=== PATIENT | male | born 1955 | race African-American/Black ===

== ENCOUNTER 2017-05-11 12:15 | Emergency (ER) | payer MEDICARE ==
[~2017-05-11] VITALS: Ht 190.5 cm; Wt 97.0 kg
[~2017-05-11 12:15] MED LIST: AMOXICILLIN500 MG OR; DOES NOT KNOW NAME; ROBITUSSIN AC10 ML OR; ZITHROMAX250 MG PO
[2017-05-11 12:31] VITALS: BP 180/70
== END 2017-05-11 12:40 | disposition left against medical advice (07) ==
LOC: ED 12:15 → LWOBS 12:40
DX: Z91.19 Patient's noncompliance with other medical treatment and regimen (principal)

== ENCOUNTER 2017-06-11 06:53 | Observation (INO) | payer MEDICARE ==
[~2017-06-11] VITALS: Ht 190.5 cm; Wt 93.8 kg
[2017-06-11 07:36] LABS: HEMATOCRIT 26.6 % (39.0-50.0); HEMOGLOBIN 8.5 g/dl (14.0-18.0); IMMATURE GRANULOCYTES 0.5 % (0.0-1.0); MEAN CELL VOLUME 95.7 fL CALC (80.0-100.0); MEAN CORPUSCULAR HGB 30.6 pG CALC (26.0-32.0); NEUT# 9.5 thou/uL (1.82-7.42); RED BLOOD COUNT 2.78 mill/uL (4.70-6.10); RED CELL DISTRI WIDTH 14.6 % (11.5-15.5)
[2017-06-11 08:15] LABS: ALBUMIN 3.7 g/dL (3.2-5.0); BILIRUBIN, TOTAL 0.8 mg/dL (0.0-1.4); POTASSIUM 4.5 mmol/l (3.5-5.1); TOTAL PROTEIN 7.4 g/dL (6.3-8.2)
[2017-06-11 08:17] LABS: CREATININE 6.2 mg/dL (0.7-1.3)
[2017-06-11] MEDS ORDERED: LOVASTATIN20 M1 PO (08:48)
[2017-06-11] MEDS ORDERED: METOPROL TAR25 MG PO (08:48)
[2017-06-11] MEDS ORDERED: AMLODIPINE5 MG PO (08:49)
[2017-06-11] MEDS ORDERED: CLONIDINE0.1 MG PO (08:49)
[2017-06-11 10:15] VITALS: BP 180/70
[2017-06-11 10:15] LABS: URINE BILIRUBIN - DIPSTICK NEGATIVE (NEGATIVE); URINE BLOOD DIPSTICK MODERATE (NEGATIVE); URINE CLARITY SLIGHT CLOUDY; URINE COLOR YELLOW; URINE GLUCOSE - DIPSTICK NEGATIVE (NEGATIVE); URINE KETONE NEGATIVE (NEGATIVE); URINE LEUK ESTERASE NEGATIVE (NEGATIVE); URINE NITRITE - DIPSTICK NEGATIVE (Negative); URINE PROTEIN - DIPSTICK >=300 mg/dL (NEG-TRACE); URINE UROBILINOGEN - DIPSTICK 0.2 E.U./dL (0.2)
[2017-06-11 10:16] LABS: URINE MUCUS FEW hpf (NONE-FEW)
[2017-06-11 11:00] VITALS: BP 142/63
[2017-06-11 15:36] VITALS: BP 142/61
[2017-06-11 19:00] VITALS: BP 163/60
[2017-06-12 00:06] VITALS: BP 156/74
[2017-06-12 04:57] VITALS: BP 163/73
[2017-06-12 06:54] LABS: HEMATOCRIT 24.2 % (39.0-50.0); HEMOGLOBIN 7.8 g/dl (14.0-18.0); MEAN CELL VOLUME 94.5 fL CALC (80.0-100.0); MEAN CORPUSCULAR HGB 30.5 pG CALC (26.0-32.0); MEAN CORPUSCULAR HGB CONC 32.2 g/L CALC (32.0-36.0); NEUT# 11.32 thou/uL (1.82-7.42); RED BLOOD COUNT 2.56 mill/uL (4.70-6.10); RED CELL DISTRI WIDTH 14.5 % (11.5-15.5)
[2017-06-12 07:10] LABS: ALBUMIN 3.3 g/dL (3.2-5.0); CALCIUM 9.1 mg/dL (8.4-10.2); POTASSIUM 4.8 mmol/l (3.5-5.1)
[2017-06-12 07:14] LABS: CREATININE 6.3 mg/dL (0.7-1.3)
[2017-06-12 07:41] VITALS: BP 194/88
[2017-06-12 15:48] VITALS: BP 158/69
[2017-06-12 18:00] VITALS: BP 184/70
[2017-06-12 23:59] VITALS: BP 173/77
[2017-06-13 05:17] VITALS: BP 192/71
[2017-06-13 07:12] LABS: ALBUMIN 3.1 g/dL (3.2-5.0)
[2017-06-13 07:20] LABS: CREATININE 6.5 mg/dL (0.7-1.3)
[2017-06-13 07:34] VITALS: BP 185/79
[2017-06-13 07:38] VITALS: BP 185/79
[2017-06-13] MEDS ORDERED: PREDNISONE10 MG PO (09:34)
[2017-06-13] MEDS ORDERED: ZITHROMAX500 MG PO (09:34)
[2017-06-13] MEDS ORDERED: PHOSLO667 MG PO (09:34)
[2017-06-13] MEDS ORDERED: LASIX 40 MG TAB40 MG PO (09:34)
[2017-06-13] MEDS ORDERED: VITAMIN D2000 UNI2 PO (09:34)
[2017-06-13] MEDS ORDERED: IPRATROPIU0.5 MG/3 M IN (09:34)
== END 2017-06-13 10:45 | disposition home or self-care (01) ==
LOC: ED 06:53 → ED-I 08:42 → ED 09:10 → MS2 09:11
PROVIDERS: Emergency Medicine; Internal Medicine Nephrology; Nurse Practitioner Family; ADMIT Internal Medicine; ATTEND Internal Medicine
DX: J44.1 Chronic obstructive pulmonary disease with (acute) exacerbation (principal); J44.0 Chronic obstructive pulmonary disease with (acute) lower respiratory infection; J20.9 Acute bronchitis, unspecified; I13.2 Hypertensive heart and chronic kidney disease with heart failure and with stage 5 chronic kidney disease, or end stage renal disease; I50.9 Heart failure, unspecified; N18.5 Chronic kidney disease, stage 5; E11.22 Type 2 diabetes mellitus with diabetic chronic kidney disease; E78.5 Hyperlipidemia, unspecified; F17.210 Nicotine dependence, cigarettes, uncomplicated; E87.2 Acidosis; D63.1 Anemia in chronic kidney disease; R09.02 Hypoxemia
CPT/HCPCS: J0885; J1756

== ENCOUNTER 2017-11-14 06:52 | Emergency (ER) | payer MEDICARE ==
[~2017-11-14] VITALS: Ht 190.5 cm; Wt 90.0 kg
[~2017-11-14 06:52] MED LIST changes: +AMLODIPINE5 MG PO; +CLONIDINE0.1 MG PO; +IPRATROPIU0.5 MG/3 M IN; +LASIX 40 MG TAB40 MG PO; +LOVASTATIN20 M1 PO; +METOPROL TAR25 MG PO; +PHOSLO667 MG PO; +PREDNISONE10 MG PO; +VITAMIN D2000 UNI2 PO; +ZITHROMAX500 MG PO
[2017-11-14 07:53] LABS: HEMATOCRIT 36.7 % (39.0-50.0); HEMOGLOBIN 11.6 g/dl (14.0-18.0); IMMATURE GRANULOCYTES 0.4 % (0.0-1.0); MEAN CELL VOLUME 92.7 fL CALC (80.0-100.0); MEAN CORPUSCULAR HGB 29.3 pG CALC (26.0-32.0); MEAN CORPUSCULAR HGB CONC 31.6 g/L CALC (32.0-36.0); NEUT# 5.3 thou/uL (1.82-7.42); RED BLOOD COUNT 3.96 mill/uL (4.70-6.10); RED CELL DISTRI WIDTH 17.9 % (11.5-15.5)
[2017-11-14 08:04] LABS: ANION GAP 18 (6-22 (CALC)); BUN 56 mg/dL (8-23); BUN/CREATININE RATIO 7 (12-20 (CALC)); CARBON DIOXIDE 32 mmol/l (22-30); CHLORIDE 98 mmol/l (95-108); GFR 7 ML/MIN (>=60 (CALC)); GFR FOR AFR.AMER. 8 ML/MIN (>=60 (CALC)); POTASSIUM 3.6 mmol/l (3.5-5.1); SODIUM 145 mmol/l (137-146)
[2017-11-14 08:10] LABS: CREATININE 8.2 mg/dL (0.7-1.3)
[2017-11-14] MEDS ORDERED: LOVASTATIN20 M1 PO (09:09)
[2017-11-14] MEDS ORDERED: CLONIDINE0.1 MG PO (09:10)
[2017-11-14] MEDS ORDERED: TRAMADOL HCL50 MG PO (09:11)
[2017-11-14 09:41] VITALS: BP 158/63
== END 2017-11-14 09:20 ==
LOC: ED 06:52
PROVIDERS: Family Medicine
DX: I63.9 Cerebral infarction, unspecified (principal); R29.810 Facial weakness; G83.24 Monoplegia of upper limb affecting left nondominant side; R29.705 NIHSS score 5; F17.210 Nicotine dependence, cigarettes, uncomplicated; I12.0 Hypertensive chronic kidney disease with stage 5 chronic kidney disease or end stage renal disease; N18.6 End stage renal disease; Z99.2 Dependence on renal dialysis

== ENCOUNTER 2017-12-26 10:38 | Emergency (ER) | payer MEDICARE ==
[~2017-12-26] VITALS: Ht 190.5 cm; Wt 90.1 kg
[~2017-12-26 10:38] MED LIST changes: +TRAMADOL HCL50 MG PO
[2017-12-26] MEDS ORDERED: METOPROL TAR25 MG PO (11:26)
[2017-12-26] MEDS ORDERED: ASPIRIN 81 LOW81 MG PO (11:27)
[2017-12-26 11:28] LABS: IMMATURE GRANULOCYTES 0.8 % (0.0-1.0); MEAN CORPUSCULAR HGB CONC 31.4 g/L CALC (32.0-36.0); NEUT# 7.14 thou/uL (1.82-7.42); RED BLOOD COUNT 2.29 mill/uL (4.70-6.10); RED CELL DISTRI WIDTH 18.3 % (11.5-15.5)
[2017-12-26] MEDS ORDERED: LISINOPRIL20 MG PO (11:28)
[2017-12-26] MEDS ORDERED: HYDRALAZINE25 MG PO (11:29)
[2017-12-26 11:35] LABS: HEMATOCRIT 22.6 % (39.0-50.0); HEMOGLOBIN 7.1 g/dl (14.0-18.0); MEAN CELL VOLUME 98.7 fL CALC (80.0-100.0)
[2017-12-26 11:46] LABS: ACT PARTIAL THROMBO TIME 28.9 SECONDS (20.0-32.5); PROTHROMBIN TIME 10.7 SECONDS (9.0-12.5)
[2017-12-26 11:47] LABS: ALKALINE PHOSPHATASE 110 u/l (38-126); ANION GAP 19 (6-22 (CALC)); BILIRUBIN, TOTAL 0.3 mg/dL (0.0-1.4); BUN 44 mg/dL (8-23); CARBON DIOXIDE 29 mmol/l (22-30); CHLORIDE 101 mmol/l (95-108); POTASSIUM 3.8 mmol/l (3.5-5.1); SGOT/AST 38 u/l (19-48); SGPT/ALT 15 u/l (11-66); SODIUM 145 mmol/l (137-146); TOTAL PROTEIN 7.5 g/dL (6.3-8.2)
[2017-12-26 11:50] LABS: ALBUMIN 3.9 g/dL (3.2-5.0); BUN/CREATININE RATIO 5 (12-20 (CALC)); CREATININE 8.1 mg/dL (0.7-1.3); GFR 7 ML/MIN (>=60 (CALC)); GFR FOR AFR.AMER. 8 ML/MIN (>=60 (CALC))
[2017-12-26 11:59] LABS: MYOGLOBIN 298 ng/mL (0 - 121)
[2017-12-26 16:14] VITALS: BP 138/70
== END 2017-12-26 16:14 ==
LOC: ED 10:38
PROVIDERS: Emergency Medicine
DX: I63.9 Cerebral infarction, unspecified (principal); G81.94 Hemiplegia, unspecified affecting left nondominant side; R29.810 Facial weakness; R29.704 NIHSS score 4; I10 Essential (primary) hypertension; F17.210 Nicotine dependence, cigarettes, uncomplicated; Z86.73 Personal history of transient ischemic attack (TIA), and cerebral infarction without residual deficits

== ENCOUNTER 2018-04-15 16:34 | Emergency (ER) | payer MEDICARE ==
[~2018-04-15] VITALS: Ht 190.5 cm; Wt 90.9 kg
[~2018-04-15 16:34] MED LIST changes: +ASPIRIN 81 LOW81 MG PO; +HYDRALAZINE25 MG PO; +LISINOPRIL20 MG PO
[2018-04-15 17:47] LABS: IMMATURE GRANULOCYTES 0.7 % (0.0-1.0); MEAN CORPUSCULAR HGB 31.6 pG CALC (26.0-32.0); MEAN CORPUSCULAR HGB CONC 31.6 g/L CALC (32.0-36.0); NEUT# 7.03 thou/uL (1.82-7.42); RED BLOOD COUNT 3.01 mill/uL (4.70-6.10); RED CELL DISTRI WIDTH 15.9 % (11.5-15.5)
[2018-04-15 18:03] LABS: HEMATOCRIT 30.1 % (39.0-50.0); HEMOGLOBIN 9.5 g/dl (14.0-18.0)
[2018-04-15 18:12] LABS: ANION GAP 11 (6-22 (CALC)); BUN 21 mg/dL (8-23); CHLORIDE 96 mmol/l (95-108); POTASSIUM 3.6 mmol/l (3.5-5.1); SODIUM 141 mmol/l (137-146)
[2018-04-15 18:13] LABS: BUN/CREATININE RATIO 4 (12-20 (CALC)); CARBON DIOXIDE 38 mmol/l (22-30); CREATININE 4.8 mg/dL (0.7-1.3); GFR 12 ML/MIN (>=60 (CALC)); GFR FOR AFR.AMER. 15 ML/MIN (>=60 (CALC))
[2018-04-15 19:10] VITALS: BP 150/65
== END 2018-04-15 19:10 | disposition home or self-care (01) ==
LOC: ED 16:34
PROVIDERS: Family Medicine
DX: R53.1 Weakness (principal); R94.31 Abnormal electrocardiogram [ECG] [EKG]; F17.210 Nicotine dependence, cigarettes, uncomplicated; Z99.2 Dependence on renal dialysis; I10 Essential (primary) hypertension; Z86.73 Personal history of transient ischemic attack (TIA), and cerebral infarction without residual deficits

== ENCOUNTER 2018-04-27 18:11 | Emergency (ER) | payer MEDICARE ==
[~2018-04-27] VITALS: Ht 190.5 cm; Wt 70.0 kg
[2018-04-27 18:53] LABS: HEMATOCRIT 32.3 % (39.0-50.0); HEMOGLOBIN 10.4 g/dl (14.0-18.0); IMMATURE GRANULOCYTES 0.4 % (0.0-1.0); MEAN CELL VOLUME 99.1 fL CALC (80.0-100.0); MEAN CORPUSCULAR HGB 31.9 pG CALC (26.0-32.0); MEAN CORPUSCULAR HGB CONC 32.2 g/L CALC (32.0-36.0); NEUT# 5.17 thou/uL (1.82-7.42); RED BLOOD COUNT 3.26 mill/uL (4.70-6.10); RED CELL DISTRI WIDTH 15.3 % (11.5-15.5)
[2018-04-27 19:07] LABS: ALBUMIN 3.9 g/dL (3.2-5.0); ALKALINE PHOSPHATASE 109 u/l (38-126); ANION GAP 18 (6-22 (CALC)); BILIRUBIN, TOTAL 0.4 mg/dL (0.0-1.4); BUN 44 mg/dL (8-23); BUN/CREATININE RATIO 6 (12-20 (CALC)); CARBON DIOXIDE 31 mmol/l (22-30); CHLORIDE 96 mmol/l (95-108); GFR 8 ML/MIN (>=60 (CALC)); GFR FOR AFR.AMER. 9 ML/MIN (>=60 (CALC)); SGOT/AST 14 u/l (19-48); SGPT/ALT 19 u/l (11-66); SODIUM 141 mmol/l (137-146); TOTAL PROTEIN 7.7 g/dL (6.3-8.2)
[2018-04-27 19:08] LABS: CREATININE 7.2 mg/dL (0.7-1.3)
[2018-04-27 19:18] LABS: MYOGLOBIN 235 ng/mL (0 - 121)
[2018-04-27 19:29] VITALS: BP 102/63
[2018-04-27 19:38] LABS: ACT PARTIAL THROMBO TIME 26.8 SECONDS (20.0-32.5); PROTHROMBIN TIME 10.8 SECONDS (9.0-12.5)
== END 2018-04-27 19:29 | disposition short-term general hospital (02) ==
LOC: ED 18:11
PROVIDERS: Emergency Medicine
DX: R47.81 Slurred speech (principal); R26.81 Unsteadiness on feet; I95.9 Hypotension, unspecified; R53.1 Weakness; I12.0 Hypertensive chronic kidney disease with stage 5 chronic kidney disease or end stage renal disease; N18.6 End stage renal disease; F17.210 Nicotine dependence, cigarettes, uncomplicated; Z99.2 Dependence on renal dialysis; Z86.73 Personal history of transient ischemic attack (TIA), and cerebral infarction without residual deficits

== ENCOUNTER 2018-05-13 15:40 | Observation (INO) | payer MEDICARE ==
[~2018-05-13] VITALS: Ht 190.5 cm; Wt 74.0 kg
[~2018-05-13 15:40] MED LIST changes: -HYDRALAZINE25 MG PO
[2018-05-13 17:24] LABS: IMMATURE GRANULOCYTES 0.6 % (0.0-5.0); MEAN CELL VOLUME 98.7 fL CALC (80.0-100.0); MEAN CORPUSCULAR HGB 32.2 pG CALC (26.0-32.0); MEAN CORPUSCULAR HGB CONC 32.6 g/L CALC (32.0-36.0); NEUT# 7.25 thou/uL (1.82-7.42); RED BLOOD COUNT 2.39 mill/uL (4.70-6.10); RED CELL DISTRI WIDTH 14.6 % (11.5-15.5)
[2018-05-13 17:32] LABS: HEMATOCRIT 23.6 % (39.0-50.0); HEMOGLOBIN 7.7 g/dl (14.0-18.0)
[2018-05-13] MEDS ORDERED: HYDRALAZINE25 MG PO (17:32)
[2018-05-13] MEDS ORDERED: METOPROL TAR25 MG PO (17:34)
[2018-05-13] MEDS ORDERED: ATORVASTATIN CA10 MG PO (17:35)
[2018-05-13 17:45] LABS: BUN 28 mg/dL (8-23); CARBON DIOXIDE 28 mmol/l (22-30); CHLORIDE 100 mmol/l (95-108); POTASSIUM 3.6 mmol/l (3.5-5.1)
[2018-05-13 17:46] LABS: ANION GAP 8 (6-22 (CALC)); BUN/CREATININE RATIO 7 (12-20 (CALC)); CREATININE 3.8 mg/dL (0.7-1.3); GFR 16 ML/MIN (>=60 (CALC)); GFR FOR AFR.AMER. 20 ML/MIN (>=60 (CALC)); SODIUM 132 mmol/l (137-146)
[2018-05-13 19:55] VITALS: BP 151/56
[2018-05-13 22:00] VITALS: BP 137/59
[2018-05-13 22:53] VITALS: BP 131/62
[2018-05-13 23:38] VITALS: BP 135/62
[2018-05-14] VITALS: BP 148/60
[2018-05-14 00:29] VITALS: BP 135/62
[2018-05-14 05:07] VITALS: BP 143/61
[2018-05-14 07:52] LABS: HEMATOCRIT 26.4 % (39.0-50.0); IMMATURE GRANULOCYTES 0.3 % (0.0-5.0); MEAN CORPUSCULAR HGB CONC 34.1 g/L CALC (32.0-36.0); NEUT# 6.28 thou/uL (1.82-7.42); RED BLOOD COUNT 2.81 mill/uL (4.70-6.10); RED CELL DISTRI WIDTH 16.2 % (11.5-15.5)
[2018-05-14 08:15] LABS: POTASSIUM 3.4 mmol/l (3.5-5.1)
[2018-05-14 08:20] VITALS: BP 135/69
[2018-05-14 11:17] VITALS: BP 126/58
== END 2018-05-14 15:12 | disposition home or self-care (01) ==
LOC: ED 15:40 → ED-I 18:03 → ED 18:21 → MS2 18:22
PROVIDERS: Family Medicine; ADMIT Internal Medicine; ATTEND Internal Medicine
PROC: 30233N1 Transfusion of Nonautologous Red Blood Cells into Peripheral Vein, Percutaneous Approach (ICD-10-PCS; principal; 2018-05-13)
DX: I12.0 Hypertensive chronic kidney disease with stage 5 chronic kidney disease or end stage renal disease (principal); D63.1 Anemia in chronic kidney disease; E11.22 Type 2 diabetes mellitus with diabetic chronic kidney disease; N18.6 End stage renal disease; F17.210 Nicotine dependence, cigarettes, uncomplicated; E78.5 Hyperlipidemia, unspecified; M19.90 Unspecified osteoarthritis, unspecified site; Z99.2 Dependence on renal dialysis; Z86.73 Personal history of transient ischemic attack (TIA), and cerebral infarction without residual deficits; Z85.038 Personal history of other malignant neoplasm of large intestine
CPT/HCPCS: P9016

== ENCOUNTER 2018-09-17 21:30 | Emergency (ER) | payer MEDICARE ==
[~2018-09-17] VITALS: Ht 190.5 cm; Wt 80.0 kg
[~2018-09-17 21:30] MED LIST changes: +ADULT ASPIRIN R81 MG PO; +ATORVASTATIN CA10 MG PO; +HYDRALAZINE25 MG PO; +LISINOPRIL10 M1 PO; +LOSARTAN POTASS50 MG PO
[2018-09-18 00:10] LABS: HEMOGLOBIN 9.2 g/dl (14.0-18.0); IMMATURE GRANULOCYTES 0.4 % (0.0-5.0); MEAN CELL VOLUME 96.9 fL CALC (80.0-100.0); MEAN CORPUSCULAR HGB 31.8 pG CALC (26.0-32.0); MEAN CORPUSCULAR HGB CONC 32.9 g/L CALC (32.0-36.0); NEUT# 3.1 thou/uL (1.82-7.42); RED BLOOD COUNT 2.89 mill/uL (4.70-6.10); RED CELL DISTRI WIDTH 14.5 % (11.5-15.5)
[2018-09-18 00:23] LABS: ALBUMIN 3.6 g/dL (3.2-5.0); BILIRUBIN, TOTAL 0.5 mg/dL (0.0-1.4); POTASSIUM 4.2 mmol/l (3.5-5.1); TOTAL PROTEIN 6.9 g/dL (6.3-8.2)
[2018-09-18 00:30] LABS: INFLUENZA B NONE DETECTED (NONE DETECT)
[2018-09-18] MEDS ORDERED: ZITHROMAX250 MG PO (00:43)
[2018-09-18 01:40] VITALS: BP 140/56
== END 2018-09-18 01:15 | disposition home or self-care (01) ==
LOC: ED 21:30
PROVIDERS: Emergency Medicine
DX: J18.9 Pneumonia, unspecified organism (principal); R05 Cough; R53.1 Weakness; R50.9 Fever, unspecified; Z86.73 Personal history of transient ischemic attack (TIA), and cerebral infarction without residual deficits; I12.0 Hypertensive chronic kidney disease with stage 5 chronic kidney disease or end stage renal disease; N18.6 End stage renal disease; Z99.2 Dependence on renal dialysis; F17.200 Nicotine dependence, unspecified, uncomplicated

== ENCOUNTER 2018-09-18 16:27 | Observation (INO) | payer MEDICARE ==
[~2018-09-18] VITALS: Ht 190.5 cm; Wt 71.0 kg
[2018-09-18 17:37] LABS: HEMATOCRIT 27.7 % (39.0-50.0); HEMOGLOBIN 9.2 g/dl (14.0-18.0); IMMATURE GRANULOCYTES 0.3 % (0.0-5.0); MEAN CELL VOLUME 96.5 fL CALC (80.0-100.0); MEAN CORPUSCULAR HGB 32.1 pG CALC (26.0-32.0); MEAN CORPUSCULAR HGB CONC 33.2 g/L CALC (32.0-36.0); NEUT# 3.89 thou/uL (1.82-7.42); RED BLOOD COUNT 2.87 mill/uL (4.70-6.10); RED CELL DISTRI WIDTH 14.4 % (11.5-15.5)
[2018-09-18 17:51] LABS: POTASSIUM 3.4 mmol/l (3.5-5.1)
[2018-09-18 17:52] LABS: CREATININE 3.1 mg/dL (0.7-1.3)
[2018-09-19] VITALS: BP 155/61
[2018-09-19 05:25] VITALS: BP 137/63
[2018-09-19 06:05] LABS: HEMATOCRIT 25.6 % (39.0-50.0); HEMOGLOBIN 8.7 g/dl (14.0-18.0); IMMATURE GRANULOCYTES 0.2 % (0.0-5.0); MEAN CELL VOLUME 94.8 fL CALC (80.0-100.0); MEAN CORPUSCULAR HGB 32.2 pG CALC (26.0-32.0); NEUT# 2.76 thou/uL (1.82-7.42); RED BLOOD COUNT 2.7 mill/uL (4.70-6.10); RED CELL DISTRI WIDTH 14.1 % (11.5-15.5)
[2018-09-19 06:20] LABS: ALBUMIN 3.2 g/dL (3.2-5.0); BILIRUBIN, TOTAL 0.4 mg/dL (0.0-1.4); MAGNESIUM 1.9 mg/dL (1.6-2.3); POTASSIUM 3.5 mmol/l (3.5-5.1); TOTAL PROTEIN 6.4 g/dL (6.3-8.2)
[2018-09-19 06:22] LABS: CREATININE 4.7 mg/dL (0.7-1.3)
[2018-09-19 07:48] VITALS: BP 111/50
[2018-09-19 11:15] VITALS: BP 100/68
== END 2018-09-19 13:51 | disposition home or self-care (01) ==
LOC: ED 16:27 → ED-I 18:10 → ED 18:24 → MS2 18:25
PROVIDERS: Family Medicine; ADMIT Internal Medicine Nephrology; ATTEND Internal Medicine Nephrology
DX: R55 Syncope and collapse (principal); E11.22 Type 2 diabetes mellitus with diabetic chronic kidney disease; I12.0 Hypertensive chronic kidney disease with stage 5 chronic kidney disease or end stage renal disease; N18.6 End stage renal disease; D63.1 Anemia in chronic kidney disease; N25.81 Secondary hyperparathyroidism of renal origin; E83.39 Other disorders of phosphorus metabolism; E78.5 Hyperlipidemia, unspecified; F17.210 Nicotine dependence, cigarettes, uncomplicated; M19.90 Unspecified osteoarthritis, unspecified site; Z99.2 Dependence on renal dialysis; Z86.73 Personal history of transient ischemic attack (TIA), and cerebral infarction without residual deficits; Z85.038 Personal history of other malignant neoplasm of large intestine

== ENCOUNTER 2019-04-30 10:03 | Emergency (ER) | payer MEDICARE ==
[~2019-04-30] VITALS: Ht 190.5 cm; Wt 60.0 kg
[2019-04-30 11:01] LABS: HEMOGLOBIN 8.6 g/dl (14.0-18.0); IMMATURE GRANULOCYTES 0.3 % (0.0-5.0); MEAN CELL VOLUME 97.4 fL CALC (80.0-100.0); MEAN CORPUSCULAR HGB 32.2 pG CALC (26.0-32.0); MEAN CORPUSCULAR HGB CONC 33.1 g/L CALC (32.0-36.0); NEUT# 2.8 thou/uL (1.82-7.42); RED BLOOD COUNT 2.67 mill/uL (4.70-6.10); RED CELL DISTRI WIDTH 13.4 % (11.5-15.5)
[2019-04-30 11:20] LABS: ALBUMIN 3.8 g/dL (3.2-5.0); ALKALINE PHOSPHATASE 100 u/l (38-126); ANION GAP 16 (6-22 (CALC)); BILIRUBIN, TOTAL 0.4 mg/dL (0.0-1.4); BUN 55 mg/dL (8-23); CARBON DIOXIDE 30 mmol/l (22-30); CHLORIDE 98 mmol/l (95-108); GFR 8 ML/MIN (>=60 (CALC)); GFR FOR AFR.AMER. 9 ML/MIN (>=60 (CALC)); POTASSIUM 3.6 mmol/l (3.5-5.1); SGOT/AST 17 u/l (19-48); SODIUM 140 mmol/l (137-146); TOTAL PROTEIN 7.5 g/dL (6.3-8.2)
[2019-04-30 11:22] LABS: BUN/CREATININE RATIO 8 (12-20 (CALC)); CREATININE 7.3 mg/dL (0.7-1.3)
[2019-04-30 12:35] VITALS: BP 115/59
== END 2019-04-30 12:35 | disposition home or self-care (01) ==
LOC: ED 10:03
PROVIDERS: Emergency Medicine
DX: R20.8 Other disturbances of skin sensation (principal); I12.0 Hypertensive chronic kidney disease with stage 5 chronic kidney disease or end stage renal disease; N18.6 End stage renal disease; Z99.2 Dependence on renal dialysis; D64.89 Other specified anemias; F17.200 Nicotine dependence, unspecified, uncomplicated; R94.31 Abnormal electrocardiogram [ECG] [EKG]; I69.354 Hemiplegia and hemiparesis following cerebral infarction affecting left non-dominant side; Y92.009 Unspecified place in unspecified non-institutional (private) residence as the place of occurrence of the external cause

== ENCOUNTER 2019-05-12 16:49 | Emergency (ER) | payer MEDICARE ==
[~2019-05-12] VITALS: Ht 190.5 cm; Wt 68.0 kg
[2019-05-12 17:49] LABS: HEMATOCRIT 23.4 % (39.0-50.0); HEMOGLOBIN 7.8 g/dl (14.0-18.0); IMMATURE GRANULOCYTES 0.4 % (0.0-5.0); MEAN CELL VOLUME 97.9 fL CALC (80.0-100.0); MEAN CORPUSCULAR HGB 32.6 pG CALC (26.0-32.0); MEAN CORPUSCULAR HGB CONC 33.3 g/L CALC (32.0-36.0); NEUT# 5.15 thou/uL (1.82-7.42); RED BLOOD COUNT 2.39 mill/uL (4.70-6.10); RED CELL DISTRI WIDTH 13.4 % (11.5-15.5)
[2019-05-12 18:05] LABS: ALBUMIN 3.3 g/dL (3.2-5.0); BILIRUBIN, TOTAL 0.3 mg/dL (0.0-1.4); TOTAL PROTEIN 6.7 g/dL (6.3-8.2)
[2019-05-12 18:06] LABS: CREATININE 3.8 mg/dL (0.7-1.3)
[2019-05-12 19:45] VITALS: BP 132/75
== END 2019-05-12 20:00 | disposition home or self-care (01) ==
LOC: ED 16:49
PROVIDERS: Emergency Medicine
DX: I95.3 Hypotension of hemodialysis (principal); E11.22 Type 2 diabetes mellitus with diabetic chronic kidney disease; I12.0 Hypertensive chronic kidney disease with stage 5 chronic kidney disease or end stage renal disease; N18.6 End stage renal disease; F17.200 Nicotine dependence, unspecified, uncomplicated; Z99.2 Dependence on renal dialysis

== ENCOUNTER 2019-06-13 16:28 | Emergency (ER) | payer MEDICARE ==
[~2019-06-13] VITALS: Ht 190.5 cm; Wt 85.0 kg
[2019-06-13 17:05] LABS: HEMATOCRIT 26.8 % (39.0-50.0); HEMOGLOBIN 8.8 g/dl (14.0-18.0); IMMATURE GRANULOCYTES 0.4 % (0.0-5.0); MEAN CORPUSCULAR HGB 32.8 pG CALC (26.0-32.0); MEAN CORPUSCULAR HGB CONC 32.8 g/L CALC (32.0-36.0); NEUT# 4.09 thou/uL (1.82-7.42); RED BLOOD COUNT 2.68 mill/uL (4.70-6.10); RED CELL DISTRI WIDTH 13.5 % (11.5-15.5)
[2019-06-13 17:18] LABS: ALBUMIN 3.9 g/dL (3.2-5.0); BILIRUBIN, TOTAL 0.4 mg/dL (0.0-1.4); CREATININE 3.2 mg/dL (0.7-1.3); TOTAL PROTEIN 7.4 g/dL (6.3-8.2)
[2019-06-13 19:15] VITALS: BP 135/71
== END 2019-06-13 19:15 | disposition home or self-care (01) ==
LOC: ED 16:28
DX: I95.3 Hypotension of hemodialysis (principal); E87.6 Hypokalemia; E11.22 Type 2 diabetes mellitus with diabetic chronic kidney disease; I12.0 Hypertensive chronic kidney disease with stage 5 chronic kidney disease or end stage renal disease; N18.6 End stage renal disease; F17.200 Nicotine dependence, unspecified, uncomplicated; Z99.2 Dependence on renal dialysis; Z86.73 Personal history of transient ischemic attack (TIA), and cerebral infarction without residual deficits

== ENCOUNTER 2019-06-25 16:23 | Emergency (ER) | payer MEDICARE ==
[~2019-06-25] VITALS: Ht 190.5 cm; Wt 81.8 kg
[2019-06-25 17:07] LABS: HEMATOCRIT 24.3 % (39.0-50.0); HEMOGLOBIN 8.2 g/dl (14.0-18.0); IMMATURE GRANULOCYTES 0.5 % (0.0-5.0); MEAN CELL VOLUME 98.4 fL CALC (80.0-100.0); MEAN CORPUSCULAR HGB 33.2 pG CALC (26.0-32.0); MEAN CORPUSCULAR HGB CONC 33.7 g/L CALC (32.0-36.0); NEUT# 4.99 thou/uL (1.82-7.42); RED BLOOD COUNT 2.47 mill/uL (4.70-6.10); RED CELL DISTRI WIDTH 13.4 % (11.5-15.5)
[2019-06-25 17:36] LABS: CREATININE 3.6 mg/dL (0.7-1.3); POTASSIUM 3.1 mmol/l (3.5-5.1)
[2019-06-25 18:54] VITALS: BP 103/45
== END 2019-06-25 18:55 ==
LOC: ED 16:23
PROVIDERS: Family Medicine
DX: R76.11 Nonspecific reaction to tuberculin skin test without active tuberculosis (principal); I95.3 Hypotension of hemodialysis; E11.22 Type 2 diabetes mellitus with diabetic chronic kidney disease; I12.0 Hypertensive chronic kidney disease with stage 5 chronic kidney disease or end stage renal disease; N18.6 End stage renal disease; F17.200 Nicotine dependence, unspecified, uncomplicated; Z99.2 Dependence on renal dialysis; Z86.73 Personal history of transient ischemic attack (TIA), and cerebral infarction without residual deficits

== ENCOUNTER 2019-09-09 23:43 | Observation (INO) | payer MEDICARE ==
[~2019-09-09] VITALS: Ht 190.5 cm; Wt 65.0 kg
[2019-09-10 00:50] LABS: IMMATURE GRANULOCYTES 0.4 % (0.0-5.0); MEAN CELL VOLUME 99.7 fL CALC (80.0-100.0); MEAN CORPUSCULAR HGB 32.9 pG CALC (26.0-32.0); NEUT# 5.48 thou/uL (1.82-7.42); RED BLOOD COUNT 3.04 mill/uL (4.70-6.10); RED CELL DISTRI WIDTH 13.1 % (11.5-15.5)
[2019-09-10 00:57] LABS: HEMATOCRIT 30.3 % (39.0-50.0)
[2019-09-10 01:12] LABS: ALBUMIN 4.6 g/dL (3.2-5.0); ALKALINE PHOSPHATASE 93 u/l (38-126); ANION GAP 16 (6-22 (CALC)); BILIRUBIN, TOTAL 0.4 mg/dL (0.0-1.4); BUN 27 mg/dL (8-23); CARBON DIOXIDE 34 mmol/l (22-30); CHLORIDE 92 mmol/l (95-108); POTASSIUM 3.5 mmol/l (3.5-5.1); SGOT/AST 24 u/l (19-48); SODIUM 139 mmol/l (137-146)
[2019-09-10 01:17] LABS: BUN/CREATININE RATIO 5 (12-20 (CALC)); GFR 10 ML/MIN (>=60 (CALC)); GFR FOR AFR.AMER. 12 ML/MIN (>=60 (CALC))
[2019-09-10 01:18] LABS: CREATININE 5.6 mg/dL (0.7-1.3)
[2019-09-10 01:24] LABS: MYOGLOBIN 291 ng/mL (0 - 121)
[2019-09-10 03:45] VITALS: BP 122/77
[2019-09-10 04:47] VITALS: BP 117/57
[2019-09-10 04:52] VITALS: BP 100/52
[2019-09-10 05:02] VITALS: BP 107/58
[2019-09-10 09:32] VITALS: BP 126/61
[2019-09-10 09:37] VITALS: BP 126/61
== END 2019-09-10 15:35 | disposition home or self-care (01) ==
LOC: ED 23:43 → ED-I 09-10 01:35 → ED 09-10 02:11 → MS2 09-10 02:12
PROVIDERS: Emergency Medicine; ADMIT Internal Medicine; ATTEND Internal Medicine
DX: R55 Syncope and collapse (principal); I12.0 Hypertensive chronic kidney disease with stage 5 chronic kidney disease or end stage renal disease; E11.22 Type 2 diabetes mellitus with diabetic chronic kidney disease; N18.6 End stage renal disease; D63.1 Anemia in chronic kidney disease; F17.210 Nicotine dependence, cigarettes, uncomplicated; Z86.73 Personal history of transient ischemic attack (TIA), and cerebral infarction without residual deficits; Z99.2 Dependence on renal dialysis; E78.5 Hyperlipidemia, unspecified
CPT/HCPCS: G0378

== ENCOUNTER 2020-02-13 | Observation (INO) | payer MEDICARE ==
[2020-02-13] MEDS ORDERED: PLAVIX75 MG PO (15:49)
[2020-02-13] MEDS ORDERED: PROAMATINE2.5 MG PO (15:49)
--- NOTE | 2020-02-13 16:00 | NUR ---
PT ARRIVES BY WHEELCHAIR FROM REGISTRATION, ALERT AND ORIENTED X 3. PT STATES THAT HE WENT TO DIALYSIS TODAY. IV ESTABLISHED WITH BLOOD DRAWN. INITIAL ASSESSMENT COMPLETED. PT IS OPINIONATED/LOUD/SIMPLE. NO ACUTE DISTRESS NOTED. PT NOT ABLE TO STATE CLEARLY WHY HE HAS BEEN ADMITTED.
[2020-02-13 16:10] LABS: HEMATOCRIT 28.4 % (39.0-50.0); HEMOGLOBIN 9.5 g/dl (14.0-18.0); IMMATURE GRANULOCYTES 0.4 % (0.0-5.0); MEAN CELL VOLUME 97.6 fL CALC (80.0-100.0); MEAN CORPUSCULAR HGB 32.6 pG CALC (26.0-32.0); MEAN CORPUSCULAR HGB CONC 33.5 g/dL CAL (32.0-36.0); NEUT# 4.81 thou/uL (1.82-7.42); RED BLOOD COUNT 2.91 mill/uL (4.70-6.10); RED CELL DISTRI WIDTH 13.3 % (11.5-15.5)
[2020-02-13 17:03] VITALS: BP 117/56
--- NOTE | 2020-02-13 17:33 | NUR ---
PT BEFORE, NO CHANGE IN STATUS, NO EVIDENCE OF DISTRESS.
--- NOTE | 2020-02-13 19:15 | NUR ---
REPORT FROM JAYCEE ALBARADO. PT NOTED SITTING UP IN BED WATCHING TV. ALERT AND ORIENTED. PT DENIES ANY PAIN OR DISCOMFORT. IV SITE APPEARS HEALTHY. PT DENIES ANY CURRENT WANTS OR NEEDS. DISCUSSED POC. PT VERBALIZED UNDERSTANDING. CALL LIGHT WITHIN REACH. WILL CONTINUE TO MONITOR.
[2020-02-13 19:48] VITALS: BP 126/54
--- NOTE | 2020-02-13 22:24 | NUR ---
PT CALLED HARDWARE DESIGN ENGINEER TO ROOM REQUESTING WHY HE IS HERE. PT DENIES FEELING ANY WEAKNESS AND STATES HE WAS BROUGHT HERE RIGHT AFTER DIALYSIS. HARDWARE DESIGN ENGINEER DISCUSSED ADMITTING DIAGNOSIS WITH PT AT THIS TIME. PT VERBALIZED UNDERSTANDING. NO CURRENT WANTS OR NEEDS. PT ENCOURAGED TO GET SOME REST AND CALL FOR ANY NEEDS. WILL CONTINUE TO MONITOR.
--- NOTE | 2020-02-14 02:02 | NUR ---
PT RESTING IN BED WITH EYES CLOSED. NO APPARENT DISTRESS NOTED. CALL LIGHT WITHIN REACH. WILL CONTINUE TO MONITOR.
[2020-02-14 03:50] VITALS: BP 114/52
[2020-02-14 07:24] VITALS: BP 117/64
--- NOTE | 2020-02-14 08:00 | NUR ---
DIALYSIS SHUNT TO LEFT UPPER ARM; PT'S WHEELCHAIR WITH CUSHION FROM HOME IN ROOM.
--- NOTE | 2020-02-14 08:00 | NUR ---
PT RESTING IN BED. NO DISTRESS. NO COMPLAINTS
--- NOTE | 2020-02-14 11:06 | NUR ---
PT RESTING IN BED. PT REPORTS PLAN FOR REHAB PLACEMENT. NO DISTRESS; NO COMPLAINTS
[2020-02-14 13:51] VITALS: BP 127/62
[2020-02-14 16:00] VITALS: BP 131/60
--- NOTE | 2020-02-14 16:00 | NUR ---
INFORMED PATIENT THAT I RECIEVED A MESSAGE THAT HIS SISTER CALLED FOR AN UPDATE. PT REPORTS THAT HE WILL CALL HIS SISTER. iNFORMATION CODE GIVEN TO PATIENT AND PT INFORMED TO GIVE CODE TO SISTER OR WHOMEVER HE WOULD LIKE TO GIVE CODE TO FOR TELEPHONE UPDATE TO BE GIVEN TO FAMILY MEMBER.
--- NOTE | 2020-02-14 19:10 | NUR ---
REPORT FROM JACKIE ALBARADO. PT NOTED SITTING UP IN BED WATCHING TV. ALERT AND ORIENTED. PT DENIES ANY PAIN OR DISCOMFORT. IV SITE APPEARS HEALTHY. PT DENIES ANY CURRENT WANTS OR NEEDS. DISCUSSED POC. PT VERBALIZED UNDERSTANDING. CALL LIGHT WITHIN REACH. WILL CONTINUE TO MONITOR.
[2020-02-14 19:20] VITALS: BP 141/66
--- NOTE | 2020-02-14 23:40 | NUR ---
PT RESTING IN BED WITH EYES CLOSED. NO APPARENT DISTRESS NOTED. CALL LIGHT WITHIN REACH. WILL CONTINUE TO MONITOR.
[2020-02-15 00:55] VITALS: BP 144/59
--- NOTE | 2020-02-15 03:32 | NUR ---
PT RESTING IN BED WITH EYES CLOSED. NO APPARENT DISTRESS NOTED. CALL LIGHT WITHIN REACH. WILL CONTINUE TO MONITOR.
[2020-02-15 04:35] VITALS: BP 100/40
[2020-02-15 05:14] LABS: HEMATOCRIT 24.3 % (39.0-50.0); HEMOGLOBIN 8.1 g/dl (14.0-18.0); MEAN CELL VOLUME 97.6 fL CALC (80.0-100.0); MEAN CORPUSCULAR HGB 32.5 pG CALC (26.0-32.0); MEAN CORPUSCULAR HGB CONC 33.3 g/dL CAL (32.0-36.0); RED BLOOD COUNT 2.49 mill/uL (4.70-6.10); RED CELL DISTRI WIDTH 13.3 % (11.5-15.5)
[2020-02-15 05:38] LABS: BILIRUBIN, TOTAL 0.3 mg/dL (0.0-1.4)
[2020-02-15 05:41] LABS: ALBUMIN 3.2 g/dL (3.2-5.0); POTASSIUM 4.3 mmol/l (3.5-5.1); TOTAL PROTEIN 6.2 g/dL (6.3-8.2)
[2020-02-15 05:42] LABS: CREATININE 7.1 mg/dL (0.7-1.3)
[2020-02-15 07:41] VITALS: BP 121/60
--- NOTE | 2020-02-15 10:18 | NUR ---
PT AWAKE, ALERT, ORIENTED X 3. LUNGS CLEAR, RA. ABDOMEN SOFT, PT STATES NO BM X 2 DAYS, REQUESTS MOM. PT SEEN BY DR MUELLER, AGREEABLE WITH PLAN OF CARE TO BE DISCHARGED TOMORROW TO DIALYSIS, THEN TO REHAB.
--- NOTE | 2020-02-15 13:19 | NUR ---
PLAN WILL BE TO DISCHARGE PT TO DIALYSIS TOMORROW MORNING, THEN HAVE REHAB BLISTER RUST ERADICATOR PT FROM THERE. MEDICAL TRANSPORT TO BE USED TO TAKE PT FROM HOSPITAL TO DIALYSIS CENTER.
[2020-02-15 15:29] VITALS: BP 131/63
[2020-02-15] MEDS ORDERED: PROAMATINE2.5 MG PO (17:07)
[2020-02-15] MEDS ORDERED: ATORVASTATIN CA10 MG PO (17:07)
[2020-02-15] MEDS ORDERED: METOPROL TAR25 MG PO (17:08)
--- NOTE | 2020-02-15 18:05 | NUR ---
PT UNABLE TO BE DISCHARGED TO REHAB AFTER DIALYSIS TOMORROW PER NOT QUALIFYING. SISTER KRISTI CALLED HOSPITAL, WAS UPDATED ON SITUATION THAT PT COULD BE DISCHARGED TONIGHT. SHE SAID SHE COULD NOT PICK HIM UP TONIGHT, THAT SHE WOULD NEED TO ARRANGE FOR SOMEONE TO STAY WITH HIM. PT, ON THE OTHER HAND, IS CALLING AROUND FOR A RIDE TO GET HIMSELF HOME TONIGHT. PT AWARE THAT HOME HEALTH WAS BEING SET UP FOR HIM, WHICH WILL START TOMORROW AFTER DIALYSIS IF HE IS DISCHARGED HOME TODAY.
--- NOTE | 2020-02-15 18:27 | NUR ---
NIEDISON GOLDSTEIN CALLED, VERY UNHAPPY THAT PT DID NOT QUALIFY FOR REHAB, THINKS THAT NURSING VISITS TO THE HOUSE WILL NOT BE ENOUGH. SITUATION WAS EXPLAINED AGAIN, FAMILY CONTINUES UNHAPPY. PT HIMSELF IS IN HIS WHEELCHAIR IN HALLWAY AFTER REFUSING TO STAY IN HIS ROOM, SAYING THAT IT IS TOO COLD.
--- NOTE | 2020-02-15 19:25 | NUR ---
PT. SITTING OUT IN W/C IN THE HALLWAY. PT. UPSET THAT HE CAN NOT GO HOME DUE TO NO RIDE. FURNITURE SPRAYER UPDATING PT. WELL. PT. REFUSES TO GO INTO THE ROOM AND WISHES TO WHEEL AROUND HALLS IN W/C. INSTRUCTED PT. HE WILL NEED TO KEEP MASK ON AT ALL TIMES WHILE IN THE GAMEZ. ASSESSMENT COMPLETED. UNABLE TO ASSESS BUTTOCKS AND RUDDY AREA DUE TO PT. NOT WANTING TO GO INTO ROOM. NO IV SITE PER DAYSHIFT REPORT, RESERVATION CLERK AWARE OF THIS AND OKAY WITH THIS PT. IS PENDING D/C. FISTULA TO ALIZA MORAN HEARD BY ASCULTATION. ENCOURAGED TO CALL FOR ANY NEEDS. CALL LIGHT IS IN REACH.
--- NOTE | 2020-02-16 00:03 | NUR ---
PT. RESTING IN BED WITH NO DISTRESS NOTED; DENIES NEEDS/PAIN. ENCOURAGED TO CALL FOR ANY NEEDS.
--- NOTE | 2020-02-16 03:45 | NUR ---
RESTING IN BED WITH EYES CLOSED; RESP. EVEN AND UNLABORED. CALL LIGHT IS IN REACH.
[2020-02-16 04:25] VITALS: BP 141/59
--- NOTE | 2020-02-16 05:05 | NUR ---
PT. SITTING UP ON THE SIDE OF THE BED AND DENIES NEEDS/PAIN. CALL LIGHT IS IN REACH.
[2020-02-16 05:10] LABS: HEMATOCRIT 24.1 % (39.0-50.0); HEMOGLOBIN 7.9 g/dl (14.0-18.0); IMMATURE GRANULOCYTES 0.4 % (0.0-5.0); MEAN CELL VOLUME 97.6 fL CALC (80.0-100.0); MEAN CORPUSCULAR HGB CONC 32.8 g/dL CAL (32.0-36.0); NEUT# 4.17 thou/uL (1.82-7.42); RED BLOOD COUNT 2.47 mill/uL (4.70-6.10); RED CELL DISTRI WIDTH 13.4 % (11.5-15.5)
[2020-02-16 05:43] LABS: ALBUMIN 3.2 g/dL (3.2-5.0); BILIRUBIN, TOTAL 0.3 mg/dL (0.0-1.4); POTASSIUM 4.5 mmol/l (3.5-5.1); TOTAL PROTEIN 6.4 g/dL (6.3-8.2)
[2020-02-16 06:42] LABS: CREATININE 8.7 mg/dL (0.7-1.3)
--- NOTE | 2020-02-16 07:20 | NUR ---
CHANGE OF SHIFT REPORT RECEIVED FROM PER OH. PT IN ROOM SITTING UP IN BED. PT DENIES PAIN. PT IS ABLE TO MAKE HIS NEEDS KNOWN. CALL LIGHT WITHIN EASY REACH. EXCAVATING MACHINE OPERATOR WILL CONTINUE TO MONITOR
[2020-02-16 07:44] VITALS: BP 105/62
--- NOTE | 2020-02-16 08:00 | NUR ---
UNIVERSITY LIBRARIAN CONSULTED WITH [facility] ABOUT TRANSPORTATION NEED FOR PT'S DIALYSIS APPOINTMENT AT 11AM. UNIVERSITY LIBRARIAN WILL CONTINUE TO FOLLOW UP
--- NOTE | 2020-02-16 10:08 | NUR ---
MERCHANT SEAMAN CALLED [facility], BEER COOL[facility]. PER [facility] TRANSPORTATION IS ON IT'S WAY TO SEX WORKER OR ESCORT PT. PT NOTIFIED
== END 2020-02-16 10:21 | disposition home health service (06) ==
PROVIDERS: Internal Medicine; Nurse Practitioner Family; ADMIT Internal Medicine
DX: R53.1 Weakness (principal); R62.7 Adult failure to thrive; Z68.1 Body mass index [BMI] 19.9 or less, adult; E11.22 Type 2 diabetes mellitus with diabetic chronic kidney disease; I12.0 Hypertensive chronic kidney disease with stage 5 chronic kidney disease or end stage renal disease; N18.6 End stage renal disease; D63.1 Anemia in chronic kidney disease; E78.5 Hyperlipidemia, unspecified; E87.6 Hypokalemia; I69.954 Hemiplegia and hemiparesis following unspecified cerebrovascular disease affecting left non-dominant side; F17.200 Nicotine dependence, unspecified, uncomplicated; Z99.2 Dependence on renal dialysis
CPT/HCPCS: G0378; G0379

== ENCOUNTER 2020-04-13 19:43 | Emergency (ER) | payer MEDICARE ==
[~2020-04-13] VITALS: Ht 190.5 cm; Wt 68.0 kg
[~2020-04-13 19:43] MED LIST changes: +PLAVIX75 MG PO; +PROAMATINE2.5 MG PO
[2020-04-13 20:28] LABS: HEMATOCRIT 22.7 % (39.0-50.0); HEMOGLOBIN 7.4 g/dl (14.0-18.0); IMMATURE GRANULOCYTES 0.2 % (0.0-5.0); MEAN CELL VOLUME 98.7 fL CALC (80.0-100.0); MEAN CORPUSCULAR HGB 32.2 pG CALC (26.0-32.0); MEAN CORPUSCULAR HGB CONC 32.6 g/dL CAL (32.0-36.0); NEUT# 3.22 thou/uL (1.82-7.42); RED BLOOD COUNT 2.3 mill/uL (4.70-6.10); RED CELL DISTRI WIDTH 13.7 % (11.5-15.5)
[2020-04-13 20:41] LABS: ALBUMIN 3.4 g/dL (3.2-5.0); ALKALINE PHOSPHATASE 76 u/l (38-126); BILIRUBIN, TOTAL 0.3 mg/dL (0.0-1.4); BUN 36 mg/dL (8-23); CHLORIDE 97 mmol/l (95-108); SGOT/AST 15 u/l (19-48); SODIUM 138 mmol/l (137-146); TOTAL PROTEIN 6.6 g/dL (6.3-8.2)
[2020-04-13 20:55] LABS: ANION GAP 10 (6-22 (CALC)); BUN/CREATININE RATIO 5 (12-20 (CALC)); CARBON DIOXIDE 34 mmol/l (22-30); CREATININE 6.6 mg/dL (0.7-1.3); GFR 8 ML/MIN (>=60 (CALC)); GFR FOR AFR.AMER. 10 ML/MIN (>=60 (CALC)); MYOGLOBIN 255 ng/mL (0 - 121); POTASSIUM 3.3 mmol/l (3.5-5.1)
[2020-04-13] MEDS ORDERED: ZPAK PO (21:40)
[2020-04-13 22:04] VITALS: BP 143/60
== END 2020-04-13 22:35 | disposition home or self-care (01) ==
LOC: ED 19:43
PROVIDERS: Emergency Medicine
DX: R55 Syncope and collapse (principal); E11.22 Type 2 diabetes mellitus with diabetic chronic kidney disease; I12.0 Hypertensive chronic kidney disease with stage 5 chronic kidney disease or end stage renal disease; N18.6 End stage renal disease; F17.200 Nicotine dependence, unspecified, uncomplicated; Z99.2 Dependence on renal dialysis; Z86.73 Personal history of transient ischemic attack (TIA), and cerebral infarction without residual deficits; Z20.828 Contact with and (suspected) exposure to other viral communicable diseases

== ENCOUNTER 2020-09-03 11:17 | Emergency (ER) | payer MEDICARE ==
[~2020-09-03] VITALS: Ht 190.5 cm; Wt 90.0 kg
[~2020-09-03 11:17] MED LIST changes: +ZPAK PO
[2020-09-03 12:42] LABS: HEMATOCRIT 25.7 % (39.0-50.0); HEMOGLOBIN 8.1 g/dl (14.0-18.0); IMMATURE GRANULOCYTES 0.6 % (0.0-5.0); MEAN CELL VOLUME 103.2 fL CALC (80.0-100.0); MEAN CORPUSCULAR HGB 32.5 pG CALC (26.0-32.0); MEAN CORPUSCULAR HGB CONC 31.5 g/dL CAL (32.0-36.0); NEUT# 6.33 thou/uL (1.82-7.42); RED BLOOD COUNT 2.49 mill/uL (4.70-6.10); RED CELL DISTRI WIDTH 13.5 % (11.5-15.5)
[2020-09-03 13:03] LABS: ALBUMIN 3.9 g/dL (3.2-5.0); ALKALINE PHOSPHATASE 65 u/l (38-126); ANION GAP 13 (6-22 (CALC)); BILIRUBIN, TOTAL 0.4 mg/dL (0.0-1.4); BUN 42 mg/dL (8-23); BUN/CREATININE RATIO 5 (12-20 (CALC)); CARBON DIOXIDE 34 mmol/l (22-30); CHLORIDE 98 mmol/l (95-108); GFR 6 ML/MIN (>=60 (CALC)); GFR FOR AFR.AMER. 8 ML/MIN (>=60 (CALC)); POTASSIUM 3.7 mmol/l (3.5-5.1); SGOT/AST 17 u/l (19-48); SODIUM 141 mmol/l (137-146); TOTAL PROTEIN 7.4 g/dL (6.3-8.2)
[2020-09-03 13:15] LABS: MYOGLOBIN 275 ng/mL (0 - 121)
[2020-09-03 13:17] LABS: CREATININE 8.5 mg/dL (0.7-1.3)
[2020-09-03 14:11] VITALS: BP 120/60
== END 2020-09-03 14:12 | disposition home or self-care (01) ==
LOC: ED 11:17
PROVIDERS: Emergency Medicine
DX: I95.9 Hypotension, unspecified (principal); E11.22 Type 2 diabetes mellitus with diabetic chronic kidney disease; I12.0 Hypertensive chronic kidney disease with stage 5 chronic kidney disease or end stage renal disease; N18.6 End stage renal disease; F17.200 Nicotine dependence, unspecified, uncomplicated; Z99.2 Dependence on renal dialysis; Z86.73 Personal history of transient ischemic attack (TIA), and cerebral infarction without residual deficits

== ENCOUNTER 2020-10-11 16:14 | Emergency (ER) | payer MEDICARE ==
[~2020-10-11] VITALS: Ht 193 cm; Wt 88.0 kg
[2020-10-11 17:49] LABS: HEMATOCRIT 23.8 % (39.0-50.0); HEMOGLOBIN 7.5 g/dl (14.0-18.0); IMMATURE GRANULOCYTES 0.6 % (0.0-5.0); MEAN CELL VOLUME 104.8 fL CALC (80.0-100.0); MEAN CORPUSCULAR HGB CONC 31.5 g/dL CAL (32.0-36.0); NEUT# 8.96 thou/uL (1.82-7.42); RED BLOOD COUNT 2.27 mill/uL (4.70-6.10); RED CELL DISTRI WIDTH 13.7 % (11.5-15.5)
[2020-10-11 18:08] LABS: ALKALINE PHOSPHATASE 72 u/l (38-126); ANION GAP 12 (6-22 (CALC)); BILIRUBIN, TOTAL 0.3 mg/dL (0.0-1.4); BUN 24 mg/dL (8-23); BUN/CREATININE RATIO 6 (12-20 (CALC)); CARBON DIOXIDE 30 mmol/l (22-30); CHLORIDE 99 mmol/l (95-108); GFR 16 ML/MIN (>=60 (CALC)); GFR FOR AFR.AMER. 19 ML/MIN (>=60 (CALC)); POTASSIUM 3.7 mmol/l (3.5-5.1); SGOT/AST 20 u/l (19-48); SODIUM 138 mmol/l (137-146); TOTAL PROTEIN 7.5 g/dL (6.3-8.2)
[2020-10-11 18:09] LABS: CREATININE 3.9 mg/dL (0.7-1.3)
[2020-10-11 18:20] LABS: MYOGLOBIN 329 ng/mL (0 - 121)
[2020-10-11 18:41] VITALS: BP 117/54
== END 2020-10-11 18:58 | disposition home or self-care (01) ==
LOC: ED 16:14
PROVIDERS: Emergency Medicine
DX: R53.1 Weakness (principal); E11.22 Type 2 diabetes mellitus with diabetic chronic kidney disease; I12.0 Hypertensive chronic kidney disease with stage 5 chronic kidney disease or end stage renal disease; N18.6 End stage renal disease; F17.210 Nicotine dependence, cigarettes, uncomplicated; Z99.2 Dependence on renal dialysis; Z86.73 Personal history of transient ischemic attack (TIA), and cerebral infarction without residual deficits; Z85.038 Personal history of other malignant neoplasm of large intestine

== ENCOUNTER 2021-01-10 14:55 | Emergency (ER) | payer MEDICARE ==
[~2021-01-10] VITALS: Ht 193 cm; Wt 68.0 kg
[2021-01-10 15:34] LABS: IMMATURE GRANULOCYTES 0.8 % (0.0-5.0); MEAN CELL VOLUME 102.5 fL CALC (80.0-100.0); MEAN CORPUSCULAR HGB CONC 33.1 g/dL CAL (32.0-36.0); NEUT# 7.74 thou/uL (1.82-7.42); RED BLOOD COUNT 1.59 mill/uL (4.70-6.10); RED CELL DISTRI WIDTH 14.6 % (11.5-15.5)
[2021-01-10 15:35] LABS: HEMATOCRIT 16.3 % (39.0-50.0)
[2021-01-10 15:36] LABS: HEMOGLOBIN 5.4 g/dl (14.0-18.0)
[2021-01-10 15:58] LABS: ALBUMIN 3.5 g/dL (3.2-5.0); ALKALINE PHOSPHATASE 80 u/l (38-126); AMYLASE 234 u/l (30-110); BUN 24 mg/dL (8-23); BUN/CREATININE RATIO 7 (12-20 (CALC)); CARBON DIOXIDE 29 mmol/l (22-30); CHLORIDE 93 mmol/l (95-108); CREATININE 3.6 mg/dL (0.7-1.3); GFR 17 ML/MIN (>=60 (CALC)); GFR FOR AFR.AMER. 21 ML/MIN (>=60 (CALC)); LIPASE 354 u/l (23-300); POTASSIUM 3.2 mmol/l (3.5-5.1); SGOT/AST 21 u/l (19-48); TOTAL PROTEIN 6.7 g/dL (6.3-8.2)
[2021-01-10 15:59] LABS: ANION GAP 12 (6-22 (CALC)); BILIRUBIN, TOTAL 0.5 mg/dL (0.0-1.4); SODIUM 131 mmol/l (137-146)
[2021-01-10 16:47] VITALS: BP 124/60
[2021-01-10 17:05] VITALS: BP 113/56
[2021-01-10 17:15] VITALS: BP 123/57
[2021-01-10 17:30] VITALS: BP 118/55
[2021-01-10 17:55] VITALS: BP 118/57
== END 2021-01-10 17:55 | disposition short-term general hospital (02) ==
LOC: ED 14:55
PROC: 30233N1 Transfusion of Nonautologous Red Blood Cells into Peripheral Vein, Percutaneous Approach (ICD-10-PCS; principal; 2021-01-10)
DX: R53.1 Weakness (principal); D64.9 Anemia, unspecified; K92.2 Gastrointestinal hemorrhage, unspecified; E11.22 Type 2 diabetes mellitus with diabetic chronic kidney disease; I12.0 Hypertensive chronic kidney disease with stage 5 chronic kidney disease or end stage renal disease; N18.6 End stage renal disease; F17.200 Nicotine dependence, unspecified, uncomplicated; Z99.2 Dependence on renal dialysis; Z86.73 Personal history of transient ischemic attack (TIA), and cerebral infarction without residual deficits; Z85.038 Personal history of other malignant neoplasm of large intestine
CPT/HCPCS: P9016

== ENCOUNTER 2021-07-15 15:13 | Observation (INO) | payer MEDICARE ==
[~2021-07-15] VITALS: Ht 193 cm; Wt 78.0 kg
[2021-07-15] VITALS (8 sets, daily range): BP systolic 125–158; BP diastolic 54–65
--- NOTE | 2021-07-15 15:15 | NUR ---
PATIENT IN BED RESTING. VSS.
--- NOTE | 2021-07-15 15:45 | NUR ---
PATIENT RESTING IN BED. WARM BLANKET APPLIED. STATES NO NEEDS AT THIS TIME.
[2021-07-15 15:56] LABS: IMMATURE GRANULOCYTES 0.4 % (0.0-5.0); MEAN CELL VOLUME 103.1 fL CALC (80.0-100.0); MEAN CORPUSCULAR HGB 32.9 pG CALC (26.0-32.0); MEAN CORPUSCULAR HGB CONC 31.9 g/dL CAL (32.0-36.0); NEUT# 4.96 thou/uL (1.82-7.42); RED BLOOD COUNT 1.61 mill/uL (4.70-6.10); RED CELL DISTRI WIDTH 15.7 % (11.5-15.5)
[2021-07-15 16:01] LABS: ALBUMIN 3.4 g/dL (3.2-5.0); ALKALINE PHOSPHATASE 85 u/l (38-126); ANION GAP 7 (6-22 (CALC)); BILIRUBIN, TOTAL 0.3 mg/dL (0.0-1.4); BUN 32 mg/dL (8-23); BUN/CREATININE RATIO 9 (12-20 (CALC)); CHLORIDE 93 mmol/l (95-108); CREATININE 3.7 mg/dL (0.7-1.3); GFR 16 ML/MIN (>=60 (CALC)); GFR FOR AFR.AMER. 20 ML/MIN (>=60 (CALC)); POTASSIUM 3.2 mmol/l (3.5-5.1); SGOT/AST 21 u/l (19-48); SODIUM 134 mmol/l (137-146); TOTAL PROTEIN 6.9 g/dL (6.3-8.2)
[2021-07-15 16:04] LABS: HEMATOCRIT 16.6 % (39.0-50.0); HEMOGLOBIN 5.3 g/dl (14.0-18.0)
[2021-07-15 16:05] LABS: CARBON DIOXIDE 37 mmol/l (22-30)
[2021-07-15 16:15] LABS: ACT PARTIAL THROMBO TIME 24.9 SECONDS (20.0-32.5); PROTHROMBIN TIME 10.2 SECONDS (9.0-12.5)
--- NOTE | 2021-07-15 16:15 | NUR ---
PATIENT RESTING IN THE BED COMFORTABLY. VSS
--- NOTE | 2021-07-15 17:55 | NUR ---
PATIENT RESTING IN THE BED COMFORTABLY. VSS.
--- NOTE | 2021-07-15 18:46 | NUR ---
PATIENT FINISHED MEAL TRAY. VSS. SUPPORT PERSON AT BEDSIDE. READY TO TRANSPORT TO ROOM
--- NOTE | 2021-07-15 19:15 | NUR ---
PATIENT ADMITTED FROM ER VIA STRETCHER WITH ER STAFF IN ATTENDANCE-ASSISTED TO BED. 1ST UNIT OF PRBC'S FINISHED-UNIT #[id number] WITH NO ADVERSE REACTION.IVF PATENT AND INFUSING VIA RAC SITE. PATIENT IS AWAKE ALERT AND ORIENTEDX3. PATIENT STATES THAT HE STARTED FEELING BAD AFTER HIS H/D TREATMENT TODAY. PATIENT WITH AV FISTULA TO LEFT ARM. ORIENTED TO ROOM AND SURROUNDINGS. INSTRUCTED ON USE OF NURSE CALL LIGHT SYSTEM, TV REMOTE AND PHONE. EATING DINNER WITHOUT ANY DIFFICULTY. SAFETY PRECAUTIONS REINFORCED. CALL LIGHT IN REACH. WILL CONT TO MONITOR.
--- NOTE | 2021-07-15 21:04 | NUR ---
PATIENT RESTING IN BED AT THIS TIME. 2ND UNIT OF PRBC'S HUNG-UNIT#[id number] EDUCATED REGUARDING POSSIBLE ADVERSE REACTIONS TO BLOOD SUCH FEVER, CHILLS, SHAKES, HEADACHE, BACK PAIN, VERBALIZES UNDERSTANDING. BLOOD INFUSING VIA RIGHT AC SITE WITHOUT ANY DIFFICULTY. TELE MONITOR IN PLACE. MONITORING PATIENT AT BEDSIDE PER PROTOCOL. CALL DOLORES ALVARADO. WILL CONT TO MONITOR.
--- NOTE | 2021-07-15 21:57 | NUR ---
PATIENT RESTING QUIETLY AT THIS TIME WITH BLOOD TRANSFUSION IN PROGRESS. EYES ARE CLOSED. RESPS ARE EVEN AN UNLOCKED, VS TAKEN AND RECORDED. AFEBRILE. TELE MONITOR IN PLACE. CALL LIGHT IN REACH. WILL CONT TO MONITOR.
--- NOTE | 2021-07-16 00:06 | NUR ---
PATIENT RESTING IN BED-2ND UNIT OF PRBC'S COMPLETED WITHOUT ANY ADVERSE REACTIONS. PATIENT VOIDED 100CC OF YELLOW URINE IN URINAL. TELE MONITOR IN PLACE. IV SITE TO RAC FLUSHED AND MAINTAINED. CALL LIGHT IN REACH. WILL CONT TO MONITOR.
[2021-07-16 00:10] VITALS: BP 140/51
[2021-07-16 04:00] VITALS: BP 95/44
[2021-07-16 04:45] LABS: HEMATOCRIT 22.1 % (39.0-50.0); IMMATURE GRANULOCYTES 0.6 % (0.0-5.0); MEAN CORPUSCULAR HGB 31.6 pG CALC (26.0-32.0); NEUT# 5.23 thou/uL (1.82-7.42); RED BLOOD COUNT 2.31 mill/uL (4.70-6.10); RED CELL DISTRI WIDTH 17.1 % (11.5-15.5)
[2021-07-16 04:51] LABS: HEMOGLOBIN 7.3 g/dl (14.0-18.0); MEAN CELL VOLUME 95.7 fL CALC (80.0-100.0)
[2021-07-16 05:09] LABS: ALBUMIN 2.9 g/dL (3.2-5.0); POTASSIUM 3.8 mmol/l (3.5-5.1)
[2021-07-16 05:22] LABS: CREATININE 5.4 mg/dL (0.7-1.3)
--- NOTE | 2021-07-16 05:37 | NUR ---
PATIENT RESTING IN BED AT THIS TIME WITH EYES CLOSED. RESPS ARE EVEN AND UNLABORED. TELE MONITOR IN PLACE-LAST READING WAS SR-64. SALINE LOCK TO RIGHT AC INTACT AND REMAINS HEALTHY. RECIEVED CALL FROM RR IN LAB WITH CREAT OF 5.4. PATIENT IS ESRD ON HEMODIALYSIS-LAST TREATMENT WAS YESTERDAY. CALL LIGHT IN REACH. WILL CONT TO MONITOR.
--- NOTE | 2021-07-16 07:05 | NUR ---
REPORT RECEIVED FROM PER KAY
[2021-07-16 07:48] VITALS: BP 130/60
--- NOTE | 2021-07-16 07:50 | NUR ---
PT RESTING IN SEMI FOWLERS POSITION,A&O X3;VS OBTAINED AND ASSESSMENT COMPLETED;PT DENIES ANY CURRENT PAIN OR DISCOMFORTS,PAIN SCALE AND REPORTING EDUCATED;RESPIRATIONS EVEN AND UNLABORED ON RA,CLEAR LUNG SOUNDS;ABDOMEN SOFT ON PALPATION AND ACTIVE IN ALL 4 QUADRANTS;WEAK PEDAL PULSES;SKIN INTACT;TELE MONITORING IN PLACE;#20G TO RAC FLUSHED AND PATENT,SITE APPEARS HEALTHY;DEAN AV FISTULA NOTED WITH DRESSING CDI;PT DENIES ANY ADDITIONAL NEEDS AND IS ENCOURAGED TO CALL FOR ASSISTANCE IF NEEDED;FALL PRECAUTIONS IN PLACE WITH BED IN THE LOWEST POSITION AND CALL LIGHT IN REACH;WILL CONTINUE TO MONITOR
--- NOTE | 2021-07-16 09:57 | NUR ---
AND OBDULIA ANRP AT BEDSIDE DISCUSSING POC.
[2021-07-16 10:15] VITALS: BP 133/63
--- NOTE | 2021-07-16 12:25 | NUR ---
PT RESTING IN SEMI FOWLERS POSITION RECEIVING PARTIAL BED BATH BY PCA;RESPIRATIONS EVEN AND UNLABORED ON RA;PT REPORTS ABDOMINAL PAIN RATING 5/10 ON THE PAIN SCALE AFTER HAVING BM AND REQUESTS PAIN MEDICATION,PT MEDICATED WITH PRN TYLENOL 650MG PO;IV SITE REMOVED WITH CATHETER INTACT AND TELE D/C FOR D/C BACK TO [facility];APPROX PICKUP TIME BETWEEN [phone];PT DENIES ANY ADDITIONAL NEEDS AND IS ENCOURAGED TO CALL FOR ASSISTANCE IF NEEDED;CALL LIGHT IN REACH;WILL CONTINUE TO MONITOR
--- NOTE | 2021-07-16 12:46 | NUR ---
REPORT CALLED TO PER CONCEPC[facility] AT [facility].
--- NOTE | 2021-07-16 13:36 | NUR ---
Discharge instructions given. Patient verbalizes understanding of same. Discharged in stable condition via Wheelchair to [facility] with *Other. All belongings sent with pt. PT TRANSPORTED TO [facility] IN STABLE CONDITION VIA FOR D/C BACK TO [facility] ACCOMPANIED BY REHAB STAFF MEMBER.PACKET WITH ALL D/C INSTRUCTIONS PROVIDED TO STAFF MEMBER FOR TRANSPORT.ALL BELONGINGS LEFT WITH PT.
== END 2021-07-16 13:37 ==
LOC: ED 15:13 → ED-I 16:33 → ED 17:10 → MS2 17:11
PROVIDERS: ADMIT Hospitalist; ATTEND Hospitalist
PROC: 30233N1 Transfusion of Nonautologous Red Blood Cells into Peripheral Vein, Percutaneous Approach (ICD-10-PCS; principal; 2021-07-15)
PROC: 30233N1 Transfusion of Nonautologous Red Blood Cells into Peripheral Vein, Percutaneous Approach (ICD-10-PCS; 2021-07-15)
DX: I12.0 Hypertensive chronic kidney disease with stage 5 chronic kidney disease or end stage renal disease (principal); E11.22 Type 2 diabetes mellitus with diabetic chronic kidney disease; N18.6 End stage renal disease; D63.1 Anemia in chronic kidney disease; E78.5 Hyperlipidemia, unspecified; F17.200 Nicotine dependence, unspecified, uncomplicated; Z99.2 Dependence on renal dialysis; Z85.038 Personal history of other malignant neoplasm of large intestine; Z86.73 Personal history of transient ischemic attack (TIA), and cerebral infarction without residual deficits; Z20.822 Contact with and (suspected) exposure to COVID-19; R53.1 Weakness
CPT/HCPCS: G0378; P9016

== ENCOUNTER 2021-07-22 16:20 | Emergency (ER) | payer MEDICARE ==
[~2021-07-22] VITALS: Ht 193 cm; Wt 90.0 kg
[2021-07-22 17:01] LABS: IMMATURE GRANULOCYTES 0.4 % (0.0-5.0); MEAN CELL VOLUME 99.5 fL CALC (80.0-100.0); MEAN CORPUSCULAR HGB 33.2 pG CALC (26.0-32.0); MEAN CORPUSCULAR HGB CONC 33.3 g/dL CAL (32.0-36.0); NEUT# 5.46 thou/uL (1.82-7.42); RED BLOOD COUNT 1.99 mill/uL (4.70-6.10); RED CELL DISTRI WIDTH 15.2 % (11.5-15.5)
[2021-07-22 17:09] LABS: HEMATOCRIT 19.8 % (39.0-50.0); HEMOGLOBIN 6.6 g/dl (14.0-18.0)
[2021-07-22 17:13] LABS: ALKALINE PHOSPHATASE 89 u/l (38-126); BILIRUBIN, TOTAL 0.3 mg/dL (0.0-1.4); BUN 42 mg/dL (8-23); CHLORIDE 89 mmol/l (95-108); POTASSIUM 3.1 mmol/l (3.5-5.1); SODIUM 135 mmol/l (137-146); TOTAL PROTEIN 6.9 g/dL (6.3-8.2)
[2021-07-22 17:18] LABS: BUN/CREATININE RATIO 10 (12-20 (CALC)); CREATININE 4.2 mg/dL (0.7-1.3); GFR 14 ML/MIN (>=60 (CALC)); GFR FOR AFR.AMER. 17 ML/MIN (>=60 (CALC))
[2021-07-22 17:19] LABS: ALBUMIN 3.6 g/dL (3.2-5.0); ANION GAP 9 (6-22 (CALC)); CARBON DIOXIDE 40 mmol/l (22-30); SGOT/AST 37 u/l (19-48)
[2021-07-22 19:35] VITALS: BP 90/44
[2021-07-22 19:50] VITALS: BP 132/57
[2021-07-22 20:42] VITALS: BP 132/57
== END 2021-07-22 20:00 | disposition short-term general hospital (02) ==
LOC: ED 16:20 → ED-I 18:13 → ED 20:00
PROVIDERS: Family Medicine
PROC: 30233N1 Transfusion of Nonautologous Red Blood Cells into Peripheral Vein, Percutaneous Approach (ICD-10-PCS; principal; 2021-07-22)
DX: K92.1 Melena (principal); D64.9 Anemia, unspecified; E11.22 Type 2 diabetes mellitus with diabetic chronic kidney disease; I12.0 Hypertensive chronic kidney disease with stage 5 chronic kidney disease or end stage renal disease; N18.6 End stage renal disease; F17.200 Nicotine dependence, unspecified, uncomplicated; Z99.2 Dependence on renal dialysis; Z86.73 Personal history of transient ischemic attack (TIA), and cerebral infarction without residual deficits; Z85.038 Personal history of other malignant neoplasm of large intestine; Z20.822 Contact with and (suspected) exposure to COVID-19
CPT/HCPCS: P9016; S0164

== ENCOUNTER 2021-09-06 15:23 | Emergency (ER) | payer MEDICARE, MEDICAID ==
[~2021-09-06] VITALS: Ht 193 cm; Wt 75.0 kg
[2021-09-06 16:05] LABS: IMMATURE GRANULOCYTES 0.4 % (0.0-5.0); MEAN CELL VOLUME 96.5 fL CALC (80.0-100.0); MEAN CORPUSCULAR HGB 32.3 pG CALC (26.0-32.0); MEAN CORPUSCULAR HGB CONC 33.5 g/dL CAL (32.0-36.0); NEUT# 8.48 thou/uL (1.82-7.42); RED BLOOD COUNT 1.98 mill/uL (4.70-6.10); RED CELL DISTRI WIDTH 15.3 % (11.5-15.5)
[2021-09-06 16:09] LABS: HEMATOCRIT 19.1 % (39.0-50.0); HEMOGLOBIN 6.4 g/dl (14.0-18.0)
[2021-09-06 16:25] LABS: ALBUMIN 3.7 g/dL (3.2-5.0); BILIRUBIN, TOTAL 0.4 mg/dL (0.0-1.4); CREATININE 3.6 mg/dL (0.7-1.3); POTASSIUM 3.3 mmol/l (3.5-5.1); TOTAL PROTEIN 7.1 g/dL (6.3-8.2)
[2021-09-06 17:57] VITALS: BP 158/54
[2021-09-06 18:30] VITALS: BP 153/58
[2021-09-06 18:43] VITALS: BP 147/60
[2021-09-06 19:52] VITALS: BP 161/58
[2021-09-06 21:01] VITALS: BP 151/54
== END 2021-09-06 20:30 | disposition left against medical advice (07) ==
LOC: ED 15:23
PROVIDERS: Family Medicine
PROC: 30233N1 Transfusion of Nonautologous Red Blood Cells into Peripheral Vein, Percutaneous Approach (ICD-10-PCS; principal; 2021-09-06)
DX: D64.9 Anemia, unspecified (principal); K92.2 Gastrointestinal hemorrhage, unspecified; E11.22 Type 2 diabetes mellitus with diabetic chronic kidney disease; I12.0 Hypertensive chronic kidney disease with stage 5 chronic kidney disease or end stage renal disease; N18.6 End stage renal disease; F17.210 Nicotine dependence, cigarettes, uncomplicated; Z99.2 Dependence on renal dialysis; Z86.73 Personal history of transient ischemic attack (TIA), and cerebral infarction without residual deficits; Z85.038 Personal history of other malignant neoplasm of large intestine; Z91.19 Patient's noncompliance with other medical treatment and regimen
CPT/HCPCS: P9016

== ENCOUNTER 2022-02-13 16:11 | Observation (INO) | payer MEDICARE, OTHER ==
[~2022-02-13] VITALS: Ht 193 cm; Wt 72.0 kg
[2022-02-13] VITALS (13 sets, daily range): BP systolic 135–160; BP diastolic 50–61
[~2022-02-13 16:11] MED LIST changes: +ACETAMINOPHEN325 MG PO; +ASPIRIN81 MG PO; +ATORVASTATIN CA40 MG PO; +BISACODYL LAXAT10 MG RE; +DEPAKOTE125 MG PO; +FLUOXETINE10 MG PO; +LISINOPRIL20 M1 PO; +NICOTINE; +NORVASC5 M1 PO; +OMEPRAZOLE DR40 MG PO; +PEPTO-BISM262 MG/15 PO; +RENAL VITAMIN PO; +VITAMIN D32000 UNI2 PO
[2022-02-13 16:56] LABS: IMMATURE GRANULOCYTES 0.5 % (0.0-5.0); MEAN CORPUSCULAR HGB CONC 31.9 g/dL CAL (32.0-36.0); NEUT# 16.62 thou/uL (1.82-7.42); RED BLOOD COUNT 1.97 mill/uL (4.70-6.10); RED CELL DISTRI WIDTH 14.7 % (11.5-15.5)
[2022-02-13 17:02] LABS: HEMATOCRIT 20.4 % (39.0-50.0); HEMOGLOBIN 6.5 g/dl (14.0-18.0); MEAN CELL VOLUME 103.6 fL CALC (80.0-100.0)
[2022-02-13 17:18] LABS: PROTHROMBIN TIME 10.2 SECONDS (9.0-12.5)
[2022-02-13 17:22] LABS: ALBUMIN 3.6 g/dL (3.2-5.0); BILIRUBIN, TOTAL 0.3 mg/dL (0.0-1.4); CREATININE 4.7 mg/dL (0.7-1.3); TOTAL PROTEIN 7.2 g/dL (6.3-8.2)
[2022-02-13 17:24] LABS: D-DIMER 0.84 mg/L (0.19-0.60)
[2022-02-14] VITALS (13 sets, daily range): BP systolic 88–154; BP diastolic 25–82
[2022-02-14 05:38] LABS: HEMATOCRIT 21.8 % (39.0-50.0); HEMOGLOBIN 7.3 g/dl (14.0-18.0); MEAN CELL VOLUME 98.6 fL CALC (80.0-100.0); MEAN CORPUSCULAR HGB CONC 33.5 g/dL CAL (32.0-36.0); RED BLOOD COUNT 2.21 mill/uL (4.70-6.10); RED CELL DISTRI WIDTH 14.9 % (11.5-15.5)
[2022-02-14 05:54] LABS: POTASSIUM 3.1 mmol/l (3.5-5.1)
[2022-02-14 06:03] LABS: ALBUMIN 2.8 g/dL (3.2-5.0)
[2022-02-14] MEDS ORDERED: AMMONIUM LACTATE12 % (11:04)
[2022-02-14] MEDS ORDERED: DEPAKOTE125 MG PO (11:11)
[2022-02-14] MEDS ORDERED: NICOTINE T7 MG/24 H1 TD (11:22)
[2022-02-14] MEDS ORDERED: MIRALAX17 GM PO (11:28)
[2022-02-14 15:32] LABS: URINE BILIRUBIN - DIPSTICK NEGATIVE (NEGATIVE); URINE BLOOD DIPSTICK MODERATE (NEGATIVE); URINE COLOR YELLOW; URINE GLUCOSE - DIPSTICK NEGATIVE (NEGATIVE); URINE KETONE NEGATIVE (NEGATIVE); URINE PROTEIN - DIPSTICK 100 mg/dL (NEG-TRACE)
[2022-02-14 16:06] LABS: URINE BACTERIA FEW hpf; URINE LEUK ESTERASE SMALL (NEGATIVE); URINE NITRITE - DIPSTICK NEGATIVE (Negative); URINE SQUAMOUS EPITHELIAL CELL FEW EPI/hpf (0-FEW)
[2022-02-15] VITALS (8 sets, daily range): BP systolic 110–156; BP diastolic 46–66
[2022-02-15 05:20] LABS: HEMATOCRIT 25.3 % (39.0-50.0); HEMOGLOBIN 8.4 g/dl (14.0-18.0); MEAN CELL VOLUME 96.9 fL CALC (80.0-100.0); MEAN CORPUSCULAR HGB 32.2 pG CALC (26.0-32.0); MEAN CORPUSCULAR HGB CONC 33.2 g/dL CAL (32.0-36.0); RED BLOOD COUNT 2.61 mill/uL (4.70-6.10); RED CELL DISTRI WIDTH 15.6 % (11.5-15.5)
[2022-02-15 05:34] LABS: ALBUMIN 2.9 g/dL (3.2-5.0); POTASSIUM 3.2 mmol/l (3.5-5.1)
[2022-02-15 05:48] LABS: CREATININE 7.2 mg/dL (0.7-1.3)
[2022-02-16] VITALS (9 sets, daily range): BP systolic 112–176; BP diastolic 52–65
[2022-02-16 05:57] LABS: HEMATOCRIT 26.4 % (39.0-50.0); HEMOGLOBIN 8.6 g/dl (14.0-18.0); MEAN CELL VOLUME 97.4 fL CALC (80.0-100.0); MEAN CORPUSCULAR HGB 31.7 pG CALC (26.0-32.0); MEAN CORPUSCULAR HGB CONC 32.6 g/dL CAL (32.0-36.0); RED BLOOD COUNT 2.71 mill/uL (4.70-6.10); RED CELL DISTRI WIDTH 15.2 % (11.5-15.5)
[2022-02-16 06:11] LABS: CREATININE 4.2 mg/dL (0.7-1.3); POTASSIUM 3.1 mmol/l (3.5-5.1)
== END 2022-02-16 19:50 ==
LOC: ED 16:11 → ED-I 17:53 → ED 18:03 → MS2 18:03
PROVIDERS: Nurse Practitioner; ADMIT Internal Medicine; ATTEND Internal Medicine
DX: D63.1 Anemia in chronic kidney disease (principal); I12.0 Hypertensive chronic kidney disease with stage 5 chronic kidney disease or end stage renal disease; N18.6 End stage renal disease; E11.22 Type 2 diabetes mellitus with diabetic chronic kidney disease; D72.829 Elevated white blood cell count, unspecified; Z85.038 Personal history of other malignant neoplasm of large intestine; E78.5 Hyperlipidemia, unspecified; Z72.0 Tobacco use; Z20.822 Contact with and (suspected) exposure to COVID-19
CPT/HCPCS: G0378; P9016; Q9967

== ENCOUNTER 2022-04-22 09:56 | Observation (INO) | payer MEDICARE, OTHER ==
[~2022-04-22] VITALS: Ht 193 cm; Wt 69.0 kg
[2022-04-22] VITALS (19 sets, daily range): BP systolic 101–156; BP diastolic 38–68
[~2022-04-22 09:56] MED LIST changes: +AMMONIUM LACTATE12 %; +MIRALAX17 GM PO; +NICOTINE T7 MG/24 H1 TD
[2022-04-22 11:23] LABS: IMMATURE GRANULOCYTES 0.2 % (0.0-5.0); MEAN CORPUSCULAR HGB 32.3 pG CALC (26.0-32.0); MEAN CORPUSCULAR HGB CONC 32.3 g/dL CAL (32.0-36.0); NEUT# 3.65 thou/uL (1.82-7.42); RED BLOOD COUNT 2.01 mill/uL (4.70-6.10); RED CELL DISTRI WIDTH 16.1 % (11.5-15.5)
[2022-04-22 11:40] LABS: HEMATOCRIT 20.1 % (39.0-50.0); HEMOGLOBIN 6.5 g/dl (14.0-18.0)
[2022-04-22 12:01] LABS: BILIRUBIN, TOTAL 0.2 mg/dL (0.0-1.4); POTASSIUM 2.8 mmol/l (3.5-5.1); TOTAL PROTEIN 6.2 g/dL (6.3-8.2)
[2022-04-22 12:03] LABS: CREATININE 6.1 mg/dL (0.7-1.3)
[2022-04-22] MEDS ORDERED: PROZAC10 MG PO (15:34)
[2022-04-23] VITALS (9 sets, daily range): BP systolic 134–172; BP diastolic 35–91
[2022-04-23 09:13] LABS: MEAN CORPUSCULAR HGB 31.1 pG CALC (26.0-32.0); MEAN CORPUSCULAR HGB CONC 34.5 g/dL CAL (32.0-36.0); RED BLOOD COUNT 3.09 mill/uL (4.70-6.10)
[2022-04-23 09:14] LABS: HEMATOCRIT 27.8 % (39.0-50.0); HEMOGLOBIN 9.6 g/dl (14.0-18.0)
[2022-04-23 09:22] LABS: POTASSIUM 4.6 mmol/l (3.5-5.1)
== END 2022-04-23 11:59 ==
LOC: ED 09:56 → ED-I 13:25 → ED 13:37 → MS2 13:38
PROVIDERS: Emergency Medicine; ADMIT Hospitalist; ATTEND Hospitalist
PROC: 30233N1 Transfusion of Nonautologous Red Blood Cells into Peripheral Vein, Percutaneous Approach (ICD-10-PCS; principal; 2022-04-22)
PROC: 30233N1 Transfusion of Nonautologous Red Blood Cells into Peripheral Vein, Percutaneous Approach (ICD-10-PCS; 2022-04-23)
DX: R41.82 Altered mental status, unspecified (principal); E87.6 Hypokalemia; U07.1 COVID-19; I12.0 Hypertensive chronic kidney disease with stage 5 chronic kidney disease or end stage renal disease; E11.22 Type 2 diabetes mellitus with diabetic chronic kidney disease; N18.6 End stage renal disease; D63.1 Anemia in chronic kidney disease; N25.81 Secondary hyperparathyroidism of renal origin; E78.5 Hyperlipidemia, unspecified; F17.200 Nicotine dependence, unspecified, uncomplicated; Z99.2 Dependence on renal dialysis; Z86.73 Personal history of transient ischemic attack (TIA), and cerebral infarction without residual deficits; Z85.038 Personal history of other malignant neoplasm of large intestine
CPT/HCPCS: P9016

== ENCOUNTER 2022-07-14 09:14 | Observation (INO) | payer MEDICARE, OTHER ==
[~2022-07-14 09:14] MED LIST changes: +PROZAC10 MG PO
[2022-07-14 11:09] LABS: IMMATURE GRANULOCYTES 0.9 % (0.0-5.0); MEAN CELL VOLUME 100.7 fL CALC (80.0-100.0); MEAN CORPUSCULAR HGB 32.4 pG CALC (26.0-32.0); MEAN CORPUSCULAR HGB CONC 32.1 g/dL CAL (32.0-36.0); NEUT# 7.15 thou/uL (1.82-7.42); RED BLOOD COUNT 1.39 mill/uL (4.70-6.10); RED CELL DISTRI WIDTH 14.5 % (11.5-15.5)
[2022-07-14 11:20] LABS: HEMOGLOBIN 4.5 g/dl (14.0-18.0)
[2022-07-14 11:28] LABS: BILIRUBIN, TOTAL 0.2 mg/dL (0.0-1.4); TOTAL PROTEIN 6.4 g/dL (6.3-8.2)
[2022-07-14 11:35] LABS: CREATININE 10.7 mg/dL (0.7-1.3); POTASSIUM 4.7 mmol/l (3.5-5.1)
[2022-07-14 11:49] LABS: IMMATURE GRANULOCYTES 0.4 % (0.0-5.0); MEAN CORPUSCULAR HGB 32.3 pG CALC (26.0-32.0); MEAN CORPUSCULAR HGB CONC 32.3 g/dL CAL (32.0-36.0); NEUT# 6.76 thou/uL (1.82-7.42); RED BLOOD COUNT 2.32 mill/uL (4.70-6.10); RED CELL DISTRI WIDTH 14.6 % (11.5-15.5)
[2022-07-14 11:50] LABS: HEMATOCRIT 23.2 % (39.0-50.0); HEMOGLOBIN 7.5 g/dl (14.0-18.0)
--- NOTE | 2022-07-14 17:35 | NUR ---
pt sitting up in recliner in no distress eating meal. pt pleasant and cooperative. nurse Alfredo from [facility] called to check on status of pt, states they will not have staff to come get him after it gets dark. states they may send him to [facility] tomorrow as other pts are going. asked alfredo to to check on that before they made the decision not to have dialysis today.
--- NOTE | 2022-07-14 19:00 | NUR ---
REPORT RECEIVED FROM Elaine BENJAMIN RN, CARE OF PT ASSUMED AT THIS TIME. DIALYSIS TX RUNNING W/O COMPLICATION.
--- NOTE | 2022-07-14 22:45 | NUR ---
POST DIALYSIS NOTE: DIALYSIS TREATMENT COMPLETED AT 2245, BLOOD RETURNED, 1000 ML OF FLUID REMOVED. TREATMENT DURATION 3 HOURS. PT TOLERATED TREATMENT WELL AND WITHOUT INCIDENT. VS:106/44mmHg 53bpm 18RR/MIN 97.7F ASSESMENT: PT A/OX3 VOICES NO COMPLAINTS. LUNGS CLEAR. RESPIRATIONS REGULAR AND UNLABORED. LUNGS CLEAR. VSS. NO EDEMA NOTED. ACCESS:LUE AVG DE-ACCESSED. FIRM PRESSURE HELD X10 MINUTES UNTIL SITE HAS CLOTTED. DRY DRESSING APPLIED.
--- NOTE | 2022-07-14 23:55 | NUR ---
[facility] TELEPHONE REPORT PROVIDED TO Jose DEL ANGEL RN.
== END 2022-07-14 23:25 ==
LOC: ED 09:35 → ED-I 12:00 → ED 12:14 → ANR-I 12:15
PROVIDERS: Nurse Practitioner; ADMIT Internal Medicine; ATTEND Internal Medicine
PROC: 5A1D70Z Performance of Urinary Filtration, Intermittent, Less than 6 Hours Per Day (ICD-10-PCS; principal; 2022-07-14)
DX: I12.0 Hypertensive chronic kidney disease with stage 5 chronic kidney disease or end stage renal disease (principal); E11.22 Type 2 diabetes mellitus with diabetic chronic kidney disease; N18.6 End stage renal disease; Z99.2 Dependence on renal dialysis; S00.83XA Contusion of other part of head, initial encounter; D63.1 Anemia in chronic kidney disease; N25.81 Secondary hyperparathyroidism of renal origin; I95.9 Hypotension, unspecified; I25.10 Atherosclerotic heart disease of native coronary artery without angina pectoris; E78.5 Hyperlipidemia, unspecified; F17.200 Nicotine dependence, unspecified, uncomplicated; W01.0XXA Fall on same level from slipping, tripping and stumbling without subsequent striking against object, initial encounter; Y92.129 Unspecified place in nursing home as the place of occurrence of the external cause; Z86.73 Personal history of transient ischemic attack (TIA), and cerebral infarction without residual deficits; Z85.038 Personal history of other malignant neoplasm of large intestine; Z20.822 Contact with and (suspected) exposure to COVID-19

== ENCOUNTER 2022-07-16 18:45 | Observation (INO) | payer MEDICARE, OTHER ==
[~2022-07-16] VITALS: Ht 193 cm; Wt 74.0 kg
--- NOTE | 2022-07-16 | NUR ---
RECEIVED IN ROOM 289 FROM ED WITH PRBC INFUSING AT 120ML/HR VIA MIDLINE IN RIGHT ARM. ALERT AND ORIENTED X 2. POOR HISTORIAN REGARDING MEDICAL AND FAMILY HISTORY. WAS RECEIVING IV ABTS IN CORRECTION FOR UTI AND DEVELOPED ALTERED MENTAL STATUS AND WAS BROUGHT TO ED FOR FURTHER EVAL. PATIENT WAS FOUND TO BE ANEMIC AND HAD NOT HAD DIALYSIS FOR SEVERAL DAYS.
[2022-07-16 19:58] LABS: IMMATURE GRANULOCYTES 0.5 % (0.0-5.0); MEAN CELL VOLUME 101.5 fL CALC (80.0-100.0); MEAN CORPUSCULAR HGB 32.5 pG CALC (26.0-32.0); NEUT# 3.82 thou/uL (1.82-7.42); RED BLOOD COUNT 1.97 mill/uL (4.70-6.10); RED CELL DISTRI WIDTH 14.9 % (11.5-15.5)
[2022-07-16 20:00] LABS: HEMOGLOBIN 6.4 g/dl (14.0-18.0)
[2022-07-16 20:06] LABS: ALBUMIN 3.6 g/dL (3.2-5.0); TOTAL PROTEIN 6.9 g/dL (6.3-8.2)
[2022-07-16 20:09] LABS: BILIRUBIN, TOTAL 0.1 mg/dL (0.0-1.4)
[2022-07-16 20:10] LABS: CREATININE 9.8 mg/dL (0.7-1.3); POTASSIUM 5.6 mmol/l (3.5-5.1)
--- NOTE | 2022-07-16 21:50 | NUR ---
PT RESTING COMFORTABLY, VSS, DENIES COMPLAINTS AT THIS TIME. SOCKS AND EXTRA BLANKET PROVIDED.
[2022-07-16 23:36] VITALS: BP 155/81
--- NOTE | 2022-07-16 23:42 | NUR ---
PT RECIEVING 1UNIT RBC AT THIS TIME, NO REACTION SUSPECTED. PT IN NAD, a&oX3, VSS.
[2022-07-16 23:47] VITALS: BP 166/61
[2022-07-17] VITALS (8 sets, daily range): BP systolic 151–195; BP diastolic 52–96
--- NOTE | 2022-07-17 04:00 | NUR ---
OFF THE FLOOR TO DIALYSIS
[2022-07-17 08:58] LABS: HEMATOCRIT 24.9 % (39.0-50.0); HEMOGLOBIN 8.1 g/dl (14.0-18.0); MEAN CORPUSCULAR HGB 31.9 pG CALC (26.0-32.0); MEAN CORPUSCULAR HGB CONC 32.5 g/dL CAL (32.0-36.0); RED BLOOD COUNT 2.54 mill/uL (4.70-6.10)
--- NOTE | 2022-07-17 09:10 | NUR ---
DIALYSIS NOTE: START TIME 518 END TIME 838 TOTAL TREATMENT TIME 3 HOURS FLUID REMOVED 2,900ML PRE DIALYSIS WEIGHT 74KG POST DIALYSIS WEIGHT 71 KG TAB SERIAL #[id number] PH 7.5 WATER TEMP 72.8 PRE DIALYSIS VS 173/74mmHg HR 59bpm 97.5 POST DIALYSIS VS 135/66 HR HR 62 97.8 HEPARIN 2,000 UNIT LOADING DOSE ADMINISTERED @ 0520 ALBUMIN 25% 100ML BOLUS ADMINISTERED FOR HYPOTENSION @0720 SEE TABLO TREATMENT FLOW SHEET. LUE AVF: +THRILL +BRUIT, CANNULATED 15G NEEDLE, POST TX PRESSURE HELD X15 MINUTES UNTIL BLEEDING STOPPED. DRY DRESSING APPLIED. PT IS ON T/T/S SCHEDULE, HEP B ANTIGEN NEGATIVE (07/16/22) HEP B ANTIBODY 43 (02/15/22).
--- NOTE | 2022-07-17 09:13 | NUR ---
TELEPHONE REPORT CALLED TO Ugo HUNTER LPN, PT TRANSPORTED BACK TO ROOM 289 BY Dimas HUDSON RN AND [place] TELLO.
--- NOTE | 2022-07-17 09:20 | NUR ---
PT RETURNED TO [place] VIA STRETCHER . FROM DIALYSIS. PT A/O ASSESSMENT AND VS COMPLETE. PT TOLERATED MEDICATIONS WELL. SHUNT TO LEFT ARM NOTED. MIDLINE TO RIGHT ARM NOTED. ALL SAFETY PRECAUTIONS IN PLACE WITH CALL LIGHT IN REACH. DENIES ADDITIONAL NEEDS.
--- NOTE | 2022-07-17 13:10 | NUR ---
PT A/O PT STATES ABLE TO USE URINAL . EDUCATED PT TO USE CALL LIGHT WHEN URINATES FOR UA COLLECTION.
--- NOTE | 2022-07-17 15:51 | NUR ---
PT RESTING IN LOW FOWLERS POSITION. UA HAS NOT BEEN OBTAINED. PT STATES USES URINAL HAS NOT HAD AN OUT PUT AT THE MOMENT.
--- NOTE | 2022-07-17 18:27 | NUR ---
CALLED REHAB AND STATED THAT HIS PHONE IS AT THE REHAB NEXT DOOR WITH HIS GLASSES ON HIS BED SIDE TABLE. CALLED MARINO HIS SISTER AT [phone] LEFT VOICEMAIL ON PHONE REGARDING HIS PHONE BEING AT REHAB.
[2022-07-18] VITALS (10 sets, daily range): BP systolic 132–175; BP diastolic 47–72
[2022-07-18 06:22] LABS: ALBUMIN 3.5 g/dL (3.2-5.0); POTASSIUM 4.8 mmol/l (3.5-5.1)
[2022-07-18 06:23] LABS: HEMOGLOBIN 7.3 g/dl (14.0-18.0); MEAN CELL VOLUME 99.1 fL CALC (80.0-100.0); MEAN CORPUSCULAR HGB 32.9 pG CALC (26.0-32.0); MEAN CORPUSCULAR HGB CONC 33.2 g/dL CAL (32.0-36.0); RED BLOOD COUNT 2.22 mill/uL (4.70-6.10); RED CELL DISTRI WIDTH 14.9 % (11.5-15.5)
[2022-07-18 06:58] LABS: CREATININE 7.5 mg/dL (0.7-1.3)
--- NOTE | 2022-07-18 07:44 | NUR ---
PT A/O ASSESSMENT AND VS COMPLETED. PT TO HAVE DIALYSIS TODAY. MIDLINE NOTED TO [facility]. SHUNT SOUNDS WITH IN NORMAL LIMITS. PT DENIES ADDITIONAL NEEDS , CHEMICAL TEST ENGINEER REPORT PT HAS URINATED URINE NOT COLLECTED. PT URINAL AT BEDSIDE LESS THAN 30ML NOT ABLE TO COLLECT URINE NEED OF NEW URINAL. ALL SAFETY PRECAUTIONS IN PLACE WITH CALL LIGHT IN REACH.
--- NOTE | 2022-07-18 09:26 | NUR ---
PT TRANSFERED TO DIALYSIS VIA BED, BY STAFF ER INFORMED.
--- NOTE | 2022-07-18 09:30 | NUR ---
spoke with Dr Og dialysis orders received and order for 1 u prbc, lab notified
--- NOTE | 2022-07-18 10:06 | NUR ---
DIALYSIS NOTE: CONSENT FOR DIALYSIS ON CHART. CLEANSED AND ACCESSED LUE FISTULA WITH GOOD BLOOD RETURN. FLUSHES WELL. INITIATED DIALYSIS ORDERED. LUNGS CLEAR,NSR, NO PEDAL EDEMA NOTED. NO C/O CHEST PAIN OR SOB.
--- NOTE | 2022-07-18 10:46 | NUR ---
INITIATED 1 UNIT PRBC VIA DIALYSIS, PT ALERT AND CONVERSIVE. TOLERATING DIALYSIS WELL.
--- NOTE | 2022-07-18 12:51 | NUR ---
COMPLETED BLOOD TRANSFUSION, PT TOLERATING WELL. VSS. AFEBRILE. NO S/S OF DISTRESS. CONTINUES WITH DIALYSIS.
--- NOTE | 2022-07-18 12:54 | NUR ---
PT IN DIALYSIS.
--- NOTE | 2022-07-18 16:05 | NUR ---
DRESSING CHANGE COMPLETE. HEPARIN FLUSHED INITIATED . PT TOLERATED WELL.
--- NOTE | 2022-07-18 19:15 | NUR ---
Report received from AM RN. Pt received in bed, awake, alert. No noted complaints. Will monitor.
[2022-07-18 22:14] LABS: URINE BILIRUBIN - DIPSTICK NEGATIVE (NEGATIVE); URINE BLOOD DIPSTICK TRACE-INTACT (NEGATIVE); URINE COLOR ORANGE; URINE GLUCOSE - DIPSTICK NEGATIVE (NEGATIVE); URINE KETONE NEGATIVE (NEGATIVE); URINE LEUK ESTERASE TRACE (NEGATIVE); URINE NITRITE - DIPSTICK NEGATIVE (Negative); URINE PROTEIN - DIPSTICK 100 mg/dL (NEG-TRACE); URINE UROBILINOGEN - DIPSTICK 0.2 E.U./dL (0.2)
[2022-07-18 22:23] LABS: URINE SQUAMOUS EPITHELIAL CELL FEW EPI/hpf (0-FEW)
[2022-07-18 22:24] LABS: URINE TRANSITIONAL EPI. CELLS MANY hpf
[2022-07-19] VITALS (9 sets, daily range): BP systolic 117–154; BP diastolic 49–78
--- NOTE | 2022-07-19 05:00 | NUR ---
Pt resting on rounds. Resps even and unlaboured. No noted complaints.
[2022-07-19 05:36] LABS: HEMATOCRIT 27.1 % (39.0-50.0); HEMOGLOBIN 9.2 g/dl (14.0-18.0); IMMATURE GRANULOCYTES 0.5 % (0.0-5.0); MEAN CELL VOLUME 97.5 fL CALC (80.0-100.0); MEAN CORPUSCULAR HGB 33.1 pG CALC (26.0-32.0); MEAN CORPUSCULAR HGB CONC 33.9 g/dL CAL (32.0-36.0); NEUT# 5.4 thou/uL (1.82-7.42); RED BLOOD COUNT 2.78 mill/uL (4.70-6.10)
[2022-07-19 06:14] LABS: ALBUMIN 3.3 g/dL (3.2-5.0); POTASSIUM 4.1 mmol/l (3.5-5.1)
[2022-07-19 06:33] LABS: CREATININE 5.7 mg/dL (0.7-1.3)
[2022-07-19] MEDS ORDERED: GABAPENTIN100 MG PO (14:37)
[2022-07-19] MEDS ORDERED: VIBRAMYCIN100 M2 PO (14:37)
--- NOTE | 2022-07-19 19:24 | NUR ---
Pt discharged via wheelchair accompanied by SEAT COVERS TRIMMER. VSS. In no apparent distress.
== END 2022-07-19 19:30 ==
LOC: ED 18:45 → ED-I 22:40 → ED 23:10 → MS2 23:10
PROVIDERS: Emergency Medicine; Internal Medicine Nephrology; ADMIT Internal Medicine; ATTEND Internal Medicine
PROC: 30233N1 Transfusion of Nonautologous Red Blood Cells into Peripheral Vein, Percutaneous Approach (ICD-10-PCS; principal; 2022-07-16)
PROC: 5A1D70Z Performance of Urinary Filtration, Intermittent, Less than 6 Hours Per Day (ICD-10-PCS; 2022-07-17)
PROC: 5A1D70Z Performance of Urinary Filtration, Intermittent, Less than 6 Hours Per Day (ICD-10-PCS; 2022-07-17)
PROC: 30233N1 Transfusion of Nonautologous Red Blood Cells into Peripheral Vein, Percutaneous Approach (ICD-10-PCS; 2022-07-18)
DX: I12.0 Hypertensive chronic kidney disease with stage 5 chronic kidney disease or end stage renal disease (principal); N18.6 End stage renal disease; E11.22 Type 2 diabetes mellitus with diabetic chronic kidney disease; D63.1 Anemia in chronic kidney disease; J18.9 Pneumonia, unspecified organism; N25.81 Secondary hyperparathyroidism of renal origin; E87.5 Hyperkalemia; N39.0 Urinary tract infection, site not specified; F03.90 Unspecified dementia, unspecified severity, without behavioral disturbance, psychotic disturbance, mood disturbance, and anxiety; E11.40 Type 2 diabetes mellitus with diabetic neuropathy, unspecified; F17.200 Nicotine dependence, unspecified, uncomplicated; K56.41 Fecal impaction; E78.5 Hyperlipidemia, unspecified; Z91.81 History of falling; Z99.2 Dependence on renal dialysis; Z86.73 Personal history of transient ischemic attack (TIA), and cerebral infarction without residual deficits; Z16.12 Extended spectrum beta lactamase (ESBL) resistance; Z85.038 Personal history of other malignant neoplasm of large intestine
CPT/HCPCS: G0378; J1335; J1644; P9016; P9047

== ENCOUNTER 2022-08-09 23:49 | Inpatient (IN) | payer MEDICARE, OTHER ==
[~2022-08-09] VITALS: Ht 193 cm; Wt 78.0 kg
[~2022-08-09 23:49] MED LIST changes: +GABAPENTIN100 MG PO; +VIBRAMYCIN100 M2 PO
[2022-08-10] VITALS (32 sets, daily range): BP systolic 99–169; BP diastolic 51–122
[2022-08-10 01:13] LABS: ALBUMIN 3.2 g/dL (3.2-5.0); TOTAL PROTEIN 6.6 g/dL (6.3-8.2)
[2022-08-10 01:22] LABS: IMMATURE GRANULOCYTES 0.5 % (0.0-5.0); MEAN CELL VOLUME 102.6 fL CALC (80.0-100.0); MEAN CORPUSCULAR HGB 31.8 pG CALC (26.0-32.0); NEUT# 5.71 thou/uL (1.82-7.42); RED BLOOD COUNT 1.95 mill/uL (4.70-6.10); RED CELL DISTRI WIDTH 14.4 % (11.5-15.5)
[2022-08-10 01:24] LABS: HEMOGLOBIN 6.2 g/dl (14.0-18.0)
[2022-08-10 01:31] LABS: BILIRUBIN, TOTAL 0.3 mg/dL (0.0-1.4); CREATININE 8.7 mg/dL (0.7-1.3)
[2022-08-10] MEDS ORDERED: DEPAKOTE125 MG PO (06:51)
[2022-08-10] MEDS ORDERED: PHOSLO667 MG PO (06:53)
[2022-08-11 03:15] VITALS: BP 163/62
[2022-08-11 04:01] VITALS: BP 141/65
[2022-08-11 05:47] LABS: MEAN CORPUSCULAR HGB 31.3 pG CALC (26.0-32.0); MEAN CORPUSCULAR HGB CONC 33.1 g/dL CAL (32.0-36.0); RED BLOOD COUNT 2.84 mill/uL (4.70-6.10); RED CELL DISTRI WIDTH 17.2 % (11.5-15.5)
[2022-08-11 05:59] LABS: HEMATOCRIT 26.9 % (39.0-50.0); HEMOGLOBIN 8.9 g/dl (14.0-18.0); MEAN CELL VOLUME 94.7 fL CALC (80.0-100.0)
[2022-08-11 06:16] LABS: ALBUMIN 3.1 g/dL (3.2-5.0)
[2022-08-11 06:37] LABS: POTASSIUM 4.2 mmol/l (3.5-5.1)
[2022-08-11 06:38] LABS: CREATININE 6.1 mg/dL (0.7-1.3)
[2022-08-11 08:01] VITALS: BP 133/61
[2022-08-11 12:01] VITALS: BP 133/45
[2022-08-11 18:55] VITALS: BP 145/87
[2022-08-11 20:01] VITALS: BP 167/70
[2022-08-12 00:01] VITALS: BP 163/146
[2022-08-12 00:03] VITALS: BP 164/64
[2022-08-12 04:01] VITALS: BP 163/58
[2022-08-12 05:34] LABS: HEMATOCRIT 28.4 % (39.0-50.0); HEMOGLOBIN 9.5 g/dl (14.0-18.0); MEAN CELL VOLUME 95.6 fL CALC (80.0-100.0); MEAN CORPUSCULAR HGB CONC 33.5 g/dL CAL (32.0-36.0); RED BLOOD COUNT 2.97 mill/uL (4.70-6.10); RED CELL DISTRI WIDTH 16.3 % (11.5-15.5)
[2022-08-12 05:47] LABS: ALBUMIN 3.1 g/dL (3.2-5.0); POTASSIUM 3.8 mmol/l (3.5-5.1)
[2022-08-12 05:57] LABS: CREATININE 4.9 mg/dL (0.7-1.3)
[2022-08-12] MEDS ORDERED: PIPERACILLIN SO1 INJ IV (08:27)
[2022-08-12 08:53] VITALS: BP 160/56
[2022-08-12 12:00] VITALS: BP 143/54
[2022-08-12 15:22] VITALS: BP 166/63
== END 2022-08-12 16:00 | DRG 193 ==
LOC: ED 23:49 → ED-I 08-10 02:30 → ED 08-10 03:00 → ICU 08-10 03:08
PROVIDERS: Emergency Medicine; Internal Medicine; Internal Medicine Nephrology; ADMIT Internal Medicine; ATTEND Internal Medicine
PROC: 30233N1 Transfusion of Nonautologous Red Blood Cells into Peripheral Vein, Percutaneous Approach (ICD-10-PCS; principal; 2022-08-10)
PROC: 30233N1 Transfusion of Nonautologous Red Blood Cells into Peripheral Vein, Percutaneous Approach (ICD-10-PCS; 2022-08-10)
PROC: 5A1D70Z Performance of Urinary Filtration, Intermittent, Less than 6 Hours Per Day (ICD-10-PCS; 2022-08-10)
PROC: 5A1D70Z Performance of Urinary Filtration, Intermittent, Less than 6 Hours Per Day (ICD-10-PCS; 2022-08-11)
DX: J18.9 Pneumonia, unspecified organism (principal); J96.01 Acute respiratory failure with hypoxia; N18.6 End stage renal disease; I12.0 Hypertensive chronic kidney disease with stage 5 chronic kidney disease or end stage renal disease; E11.22 Type 2 diabetes mellitus with diabetic chronic kidney disease; N25.81 Secondary hyperparathyroidism of renal origin; E78.5 Hyperlipidemia, unspecified; D63.1 Anemia in chronic kidney disease; E11.610 Type 2 diabetes mellitus with diabetic neuropathic arthropathy; F17.200 Nicotine dependence, unspecified, uncomplicated; Z99.2 Dependence on renal dialysis; Z86.73 Personal history of transient ischemic attack (TIA), and cerebral infarction without residual deficits; Z85.038 Personal history of other malignant neoplasm of large intestine
CPT/HCPCS: P9016

== ENCOUNTER 2022-11-07 10:28 | Emergency (ER) | payer MEDICARE, OTHER ==
[2022-11-07] VITALS (10 sets, daily range): BP systolic 162–175; BP diastolic 60–74
[~2022-11-07] VITALS: Ht 193 cm; Wt 86.1 kg
[~2022-11-07 10:28] MED LIST changes: +PIPERACILLIN SO1 INJ IV
== END 2022-11-07 12:59 | disposition left against medical advice (07) ==
LOC: ED 10:28
DX: S00.83XA Contusion of other part of head, initial encounter (principal); E11.22 Type 2 diabetes mellitus with diabetic chronic kidney disease; I12.0 Hypertensive chronic kidney disease with stage 5 chronic kidney disease or end stage renal disease; N18.6 End stage renal disease; W05.0XXA Fall from non-moving wheelchair, initial encounter; Y92.129 Unspecified place in nursing home as the place of occurrence of the external cause; Z99.2 Dependence on renal dialysis; Z86.73 Personal history of transient ischemic attack (TIA), and cerebral infarction without residual deficits; Z85.038 Personal history of other malignant neoplasm of large intestine; Z53.29 Procedure and treatment not carried out because of patient's decision for other reasons

== ENCOUNTER 2022-11-22 14:41 | Observation (INO) | payer MEDICARE, OTHER ==
[~2022-11-22] VITALS: Ht 193 cm; Wt 100.0 kg
[2022-11-22 15:11] VITALS: BP 171/67
[2022-11-22 15:31] VITALS: BP 154/68
[2022-11-22 15:46] VITALS: BP 157/67
[2022-11-22 16:07] LABS: BASO% 0.1 % (0-3); EOS% 0.5 % (0-8); HEMOGLOBIN 9.4 g/dl (14.0-18.0); IMMATURE GRANULOCYTES 0.3 % (0.0-5.0); LYMPH% 6.6 % (15-41); MEAN CELL VOLUME 100.3 fL CALC (80.0-100.0); MEAN CORPUSCULAR HGB 32.5 pG CALC (26.0-32.0); MEAN CORPUSCULAR HGB CONC 32.4 g/dL CAL (32.0-36.0); MONO% 6.3 % (2-13); NEUT# 13.67 thou/uL (1.82-7.42); NEUT% 86.2 % (42-76); RED BLOOD COUNT 2.89 mill/uL (4.70-6.10); RED CELL DISTRI WIDTH 15.5 % (11.5-15.5)
[2022-11-22 16:37] LABS: ALKALINE PHOSPHATASE 69 u/l (38-126); ANION GAP 13 (6-22 (CALC)); CARBON DIOXIDE 34 mmol/l (22-30); CHLORIDE 95 mmol/l (95-108); INTERNATIONAL NORMALIZED RATIO 1.1 RATIO (0.7-1.3); POTASSIUM 4.1 mmol/l (3.5-5.1); PROTHROMBIN TIME 10.5 SECONDS (9.0-12.5); SGOT/AST 27 u/l (19-48); SODIUM 138 mmol/l (137-146)
[2022-11-22 16:39] LABS: BILIRUBIN, TOTAL 0.7 mg/dL (0.2-1.3); BUN 56 mg/dL (8-23); BUN/CREATININE RATIO 8 (12-20 (CALC)); CREATININE 7.1 mg/dL (0.7-1.3); GFR FOR AFR.AMER. 9 ML/MIN (>=60 (CALC)); GFR OTHER RACES 8 ML/MIN (>=60 (CALC))
[2022-11-22 21:01] VITALS: BP 162/61
[2022-11-23] VITALS (8 sets, daily range): BP systolic 132–168; BP diastolic 49–70
[2022-11-23] MEDS ORDERED: SERTRALINE25 MG PO (00:59)
[2022-11-23 06:18] LABS: BASO% 0.1 % (0-3); EOS% 0.9 % (0-8); HEMATOCRIT 27.4 % (39.0-50.0); HEMOGLOBIN 9.1 g/dl (14.0-18.0); IMMATURE GRANULOCYTES 0.2 % (0.0-5.0); LYMPH% 7.9 % (15-41); MEAN CELL VOLUME 98.9 fL CALC (80.0-100.0); MEAN CORPUSCULAR HGB 32.9 pG CALC (26.0-32.0); MEAN CORPUSCULAR HGB CONC 33.2 g/dL CAL (32.0-36.0); MONO% 5.9 % (2-13); NEUT# 11.41 thou/uL (1.82-7.42); RED BLOOD COUNT 2.77 mill/uL (4.70-6.10); RED CELL DISTRI WIDTH 15.9 % (11.5-15.5)
[2022-11-23 06:29] LABS: ALBUMIN 3.7 g/dL (3.2-5.0); MAGNESIUM 1.9 mg/dL (1.6-2.3); POTASSIUM 4.4 mmol/l (3.5-5.1); TOTAL PROTEIN 7.6 g/dL (6.3-8.2)
[2022-11-23 06:46] LABS: BILIRUBIN, TOTAL 0.3 mg/dL (0.2-1.3); CREATININE 7.8 mg/dL (0.7-1.3)
[2022-11-23 09:39] LABS: URINE BILIRUBIN - DIPSTICK NEGATIVE (NEGATIVE); URINE BLOOD DIPSTICK NEGATIVE (NEGATIVE); URINE COLOR YELLOW; URINE GLUCOSE - DIPSTICK NEGATIVE (NEGATIVE); URINE KETONE NEGATIVE (NEGATIVE); URINE LEUK ESTERASE NEGATIVE (NEGATIVE); URINE PH 8.5 (4.5-8.0); URINE PROTEIN - DIPSTICK 100 mg/dL (NEG-TRACE); URINE SPECIFIC GRAVITY 1.015; URINE UROBILINOGEN - DIPSTICK 0.2 E.U./dL (0.2)
[2022-11-23 09:42] LABS: URINE NITRITE - DIPSTICK NEGATIVE (Negative)
[2022-11-23 09:43] LABS: URINE EPITHELIAL CELLS FEW EPI/hpf (0-FEW); URINE MUCUS MODERATE hpf (NONE-FEW)
[2022-11-23] MEDS ORDERED: GABAPENTIN300 M2 PO (14:47)
[2022-11-24 05:26] VITALS: BP 142/52
[2022-11-24 05:40] LABS: ALBUMIN 3.3 g/dL (3.2-5.0); BASO% 0.1 % (0-3); BILIRUBIN, TOTAL 0.2 mg/dL (0.2-1.3); EOS% 1.1 % (0-8); HEMATOCRIT 24.7 % (39.0-50.0); HEMOGLOBIN 8.3 g/dl (14.0-18.0); IMMATURE GRANULOCYTES 0.7 % (0.0-5.0); LYMPH% 13.6 % (15-41); MAGNESIUM 1.7 mg/dL (1.6-2.3); MEAN CORPUSCULAR HGB 33.6 pG CALC (26.0-32.0); MEAN CORPUSCULAR HGB CONC 33.6 g/dL CAL (32.0-36.0); MONO% 8.7 % (2-13); NEUT# 6.73 thou/uL (1.82-7.42); NEUT% 75.8 % (42-76); POTASSIUM 3.8 mmol/l (3.5-5.1); RED BLOOD COUNT 2.47 mill/uL (4.70-6.10); RED CELL DISTRI WIDTH 15.3 % (11.5-15.5); TOTAL PROTEIN 6.9 g/dL (6.3-8.2)
[2022-11-24 06:50] VITALS: BP 142/55
[2022-11-24] MEDS ORDERED: TAMIFLU30 MG PO (08:14)
[2022-11-24 09:27] VITALS: BP 154/55
[2022-11-24 10:02] VITALS: BP 138/53
== END 2022-11-24 14:00 ==
LOC: ED 14:41 → ED-I 17:00 → ED 17:26 → MS2 17:27
PROVIDERS: Family Medicine; Nurse Practitioner Family; ADMIT Internal Medicine; ATTEND Internal Medicine
PROC: 5A1D70Z Performance of Urinary Filtration, Intermittent, Less than 6 Hours Per Day (ICD-10-PCS; principal; 2022-11-23)
DX: G93.40 Encephalopathy, unspecified (principal); E11.22 Type 2 diabetes mellitus with diabetic chronic kidney disease; I12.0 Hypertensive chronic kidney disease with stage 5 chronic kidney disease or end stage renal disease; N18.6 End stage renal disease; J11.1 Influenza due to unidentified influenza virus with other respiratory manifestations; D63.1 Anemia in chronic kidney disease; N25.81 Secondary hyperparathyroidism of renal origin; I69.992 Facial weakness following unspecified cerebrovascular disease; I69.954 Hemiplegia and hemiparesis following unspecified cerebrovascular disease affecting left non-dominant side; E78.5 Hyperlipidemia, unspecified; F17.200 Nicotine dependence, unspecified, uncomplicated; Z99.2 Dependence on renal dialysis; Z85.038 Personal history of other malignant neoplasm of large intestine; Z87.19 Personal history of other diseases of the digestive system; Z91.041 Radiographic dye allergy status; Z20.822 Contact with and (suspected) exposure to COVID-19; C18.9 Malignant neoplasm of colon, unspecified; D64.9 Anemia, unspecified
CPT/HCPCS: J1644; P9016

== ENCOUNTER 2023-01-06 18:33 | Observation (INO) | payer MEDICARE, OTHER ==
[~2023-01-06] VITALS: Ht 193 cm; Wt 86.0 kg
[2023-01-06] VITALS (16 sets, daily range): BP systolic 135–161; BP diastolic 50–67
[~2023-01-06 18:33] MED LIST changes: +GABAPENTIN300 M2 PO; +SERTRALINE25 MG PO; +TAMIFLU30 MG PO
[2023-01-06 19:27] LABS: BASO% 0.1 % (0-3); EOS% 1.8 % (0-8); HEMATOCRIT 20.3 % (39.0-50.0); IMMATURE GRANULOCYTES 0.5 % (0.0-5.0); LYMPH% 17.8 % (15-41); MEAN CELL VOLUME 103.6 fL CALC (80.0-100.0); MEAN CORPUSCULAR HGB 33.7 pG CALC (26.0-32.0); MEAN CORPUSCULAR HGB CONC 32.5 g/dL CAL (32.0-36.0); MONO% 7.9 % (2-13); NEUT# 5.7 thou/uL (1.82-7.42); NEUT% 71.9 % (42-76); RED BLOOD COUNT 1.96 mill/uL (4.70-6.10); RED CELL DISTRI WIDTH 14.4 % (11.5-15.5)
[2023-01-06 19:31] LABS: HEMOGLOBIN 6.6 g/dl (14.0-18.0)
[2023-01-06 19:35] LABS: PROTHROMBIN TIME 10.4 SECONDS (9.0-12.5)
[2023-01-06 19:36] LABS: ALBUMIN 3.7 g/dL (3.2-5.0); ALKALINE PHOSPHATASE 78 u/l (38-126); ANION GAP 12 (6-22 (CALC)); BILIRUBIN, TOTAL 0.2 mg/dL (0.2-1.3); BUN 34 mg/dL (8-23); BUN/CREATININE RATIO 7 (12-20 (CALC)); CARBON DIOXIDE 36 mmol/l (22-30); CHLORIDE 93 mmol/l (95-108); CREATININE 4.9 mg/dL (0.7-1.3); ETHYL ALCOHOL 0 mg/dl (0-30); GFR FOR AFR.AMER. 14 ML/MIN (>=60 (CALC)); GFR OTHER RACES 12 ML/MIN (>=60 (CALC)); POTASSIUM 3.6 mmol/l (3.5-5.1); SGOT/AST 24 u/l (19-48); SODIUM 137 mmol/l (137-146); TOTAL PROTEIN 7.5 g/dL (6.3-8.2)
[2023-01-07 00:45] VITALS: BP 156/52
[2023-01-07 01:45] VITALS: BP 153/58
[2023-01-07 04:00] VITALS: BP 155/66
[2023-01-07 05:09] VITALS: BP 155/66
[2023-01-07 05:42] LABS: BASO% 0.2 % (0-3); EOS% 1.3 % (0-8); HEMATOCRIT 22.4 % (39.0-50.0); HEMOGLOBIN 7.3 g/dl (14.0-18.0); IMMATURE GRANULOCYTES 0.6 % (0.0-5.0); LYMPH% 17.4 % (15-41); MEAN CELL VOLUME 99.1 fL CALC (80.0-100.0); MEAN CORPUSCULAR HGB 32.3 pG CALC (26.0-32.0); MEAN CORPUSCULAR HGB CONC 32.6 g/dL CAL (32.0-36.0); MONO% 8.2 % (2-13); NEUT# 5.97 thou/uL (1.82-7.42); NEUT% 72.3 % (42-76); RED BLOOD COUNT 2.26 mill/uL (4.70-6.10); RED CELL DISTRI WIDTH 16.2 % (11.5-15.5)
[2023-01-07 05:46] LABS: ALBUMIN 3.3 g/dL (3.2-5.0); MAGNESIUM 1.9 mg/dL (1.6-2.3); TOTAL PROTEIN 6.4 g/dL (6.3-8.2)
[2023-01-07 05:59] LABS: BILIRUBIN, TOTAL 0.3 mg/dL (0.2-1.3); CREATININE 5.4 mg/dL (0.7-1.3)
[2023-01-07 06:39] VITALS: BP 150/64
[2023-01-07 09:28] LABS: CHOLESTEROL HDL RATIO 3.8 (<4.4 (CALC))
[2023-01-07 18:34] VITALS: BP 145/58
[2023-01-08 00:11] VITALS: BP 134/47
[2023-01-08 04:31] VITALS: BP 139/52
[2023-01-08 06:23] VITALS: BP 129/58
[2023-01-08 06:39] VITALS: BP 128/56
[2023-01-08 10:43] VITALS: BP 134/59
[2023-01-08 10:45] VITALS: BP 134/59
[2023-01-08 12:55] LABS: URINE BILIRUBIN - DIPSTICK NEGATIVE (NEGATIVE); URINE BLOOD DIPSTICK TRACE-INTACT (NEGATIVE); URINE COLOR YELLOW; URINE GLUCOSE - DIPSTICK NEGATIVE (NEGATIVE); URINE KETONE NEGATIVE (NEGATIVE); URINE LEUK ESTERASE NEGATIVE (NEGATIVE); URINE NITRITE - DIPSTICK NEGATIVE (Negative); URINE PH 8.5 (4.5-8.0); URINE PROTEIN - DIPSTICK 100 mg/dL (NEG-TRACE); URINE UROBILINOGEN - DIPSTICK 0.2 E.U./dL (0.2)
[2023-01-08 12:56] LABS: URINE RBC 0-2 RBC/hpf (0-5); URINE WBC 0-2 WBC/hpf (0-5)
== END 2023-01-08 14:42 ==
LOC: ED 18:33 → ED-I 21:01 → ED 21:14 → MS2 21:15
PROVIDERS: Family Medicine; Psychiatry & Neurology Neurology; ADMIT Internal Medicine; ATTEND Internal Medicine
PROC: 30233N1 Transfusion of Nonautologous Red Blood Cells into Peripheral Vein, Percutaneous Approach (ICD-10-PCS; principal; 2023-01-06)
DX: G93.41 Metabolic encephalopathy (principal); I12.0 Hypertensive chronic kidney disease with stage 5 chronic kidney disease or end stage renal disease; E11.22 Type 2 diabetes mellitus with diabetic chronic kidney disease; N18.6 End stage renal disease; D63.1 Anemia in chronic kidney disease; N25.81 Secondary hyperparathyroidism of renal origin; D50.0 Iron deficiency anemia secondary to blood loss (chronic); E11.51 Type 2 diabetes mellitus with diabetic peripheral angiopathy without gangrene; I69.954 Hemiplegia and hemiparesis following unspecified cerebrovascular disease affecting left non-dominant side; E78.5 Hyperlipidemia, unspecified; F17.210 Nicotine dependence, cigarettes, uncomplicated; Z99.2 Dependence on renal dialysis; Z85.038 Personal history of other malignant neoplasm of large intestine; Z20.822 Contact with and (suspected) exposure to COVID-19
CPT/HCPCS: P9016

== ENCOUNTER 2023-01-22 09:00 | Day surgery (SDC) | payer MEDICARE, OTHER ==
[2023-01-22] MEDS ORDERED: PROBIOTIC PO (09:57)
[2023-01-22] MEDS ORDERED: [UNRECOGNIZED DRUG - OTHER] PO (09:57)
[2023-01-22] MEDS ORDERED: GLUCAGON1 MG IJ (09:59)
[2023-01-22] MEDS ORDERED: ASPIRIN 81 LOW81 MG PO (10:01)
[2023-01-22] MEDS ORDERED: PLAVIX75 MG PO (10:02)
[2023-01-22 11:40] VITALS: BP 145/54
== END 2023-01-22 11:05 ==
LOC: ENDO 09:00 → ORM 10:15 → ENDO 11:05 → ORM 11:15
PROVIDERS: ATTEND Internal Medicine Gastroenterology
PROC: 0DB98ZX Excision of Duodenum, Via Natural or Artificial Opening Endoscopic, Diagnostic (ICD-10-PCS; principal; 2023-01-22)
PROC: 0DB68ZX Excision of Stomach, Via Natural or Artificial Opening Endoscopic, Diagnostic (ICD-10-PCS; 2023-01-22)
PROC: 0DB48ZX Excision of Esophagogastric Junction, Via Natural or Artificial Opening Endoscopic, Diagnostic (ICD-10-PCS; 2023-01-22)
DX: D64.9 Anemia, unspecified (principal); K21.00 Gastro-esophageal reflux disease with esophagitis, without bleeding; K29.80 Duodenitis without bleeding; K63.5 Polyp of colon; I12.0 Hypertensive chronic kidney disease with stage 5 chronic kidney disease or end stage renal disease; E11.22 Type 2 diabetes mellitus with diabetic chronic kidney disease; N18.6 End stage renal disease; E78.5 Hyperlipidemia, unspecified; Z99.2 Dependence on renal dialysis; Z85.038 Personal history of other malignant neoplasm of large intestine; Z87.19 Personal history of other diseases of the digestive system; Z79.899 Other long term (current) drug therapy

== ENCOUNTER 2023-01-30 11:55 | Observation (INO) | payer MEDICARE, OTHER ==
[2023-01-30] VITALS (13 sets, daily range): BP systolic 81–187; BP diastolic 40–87
[~2023-01-30] VITALS: Ht 193 cm; Wt 79.0 kg
[~2023-01-30 11:55] MED LIST changes: +GLUCAGON1 MG IJ; +PROBIOTIC PO; +[UNRECOGNIZED DRUG - OTHER] PO
--- NOTE | 2023-01-30 11:55 | NUR ---
PT TO ROOM 10 VIA EMS FOR TRIAGE, PT IS AWAKE AND CONVERSANT.
--- NOTE | 2023-01-30 11:59 | NUR ---
PATIENT TO ROOM 10 VIA EMS
[2023-01-30 12:26] LABS: BASO% 0.1 % (0-3); HEMATOCRIT 20.2 % (39.0-50.0); IMMATURE GRANULOCYTES 0.4 % (0.0-5.0); MEAN CELL VOLUME 104.7 fL CALC (80.0-100.0); MEAN CORPUSCULAR HGB 33.2 pG CALC (26.0-32.0); MEAN CORPUSCULAR HGB CONC 31.7 g/dL CAL (32.0-36.0); MONO% 5.9 % (2-13); NEUT# 7.85 thou/uL (1.82-7.42); NEUT% 78.6 % (42-76); RED BLOOD COUNT 1.93 mill/uL (4.70-6.10); RED CELL DISTRI WIDTH 15.7 % (11.5-15.5)
[2023-01-30 12:32] LABS: HEMOGLOBIN 6.4 g/dl (14.0-18.0)
--- NOTE | 2023-01-30 12:39 | NUR ---
resting in bed with eyes closed. no acute distress
[2023-01-30 12:43] LABS: ALBUMIN 3.9 g/dL (3.2-5.0); ALKALINE PHOSPHATASE 83 u/l (38-126); ANION GAP 17 (6-22 (CALC)); BILIRUBIN, TOTAL 0.2 mg/dL (0.2-1.3); CARBON DIOXIDE 33 mmol/l (22-30); CHLORIDE 95 mmol/l (95-108); GFR FOR AFR.AMER. 7 ML/MIN (>=60 (CALC)); GFR OTHER RACES 6 ML/MIN (>=60 (CALC)); POTASSIUM 4.5 mmol/l (3.5-5.1); SGOT/AST 20 u/l (19-48); SODIUM 140 mmol/l (137-146); TOTAL PROTEIN 7.3 g/dL (6.3-8.2)
[2023-01-30 12:58] LABS: BUN 81 mg/dL (8-23); BUN/CREATININE RATIO 9 (12-20 (CALC))
--- NOTE | 2023-01-30 13:04 | NUR ---
MEDICATIONS RECONCILED. PATIENT UNABLE TO VERIFY THE MEDICATIONS HE TAKES. STATES "THERES A LOT OF THEM."
--- NOTE | 2023-01-30 13:10 | NUR ---
MD BEDSIDE TO DISCUSS PLAN FOR ADMISSION. HE STATED UNDERSTANDING
--- NOTE | 2023-01-30 13:31 | NUR ---
CALLED AND GAVE REPORT TO MED SURG NURSE ELIZ. THEY VERIFIED REPORT RECIEVED. PATIENT TRANSPORTED TO MED SURG VIA STRETCHER.
--- NOTE | 2023-01-30 14:10 | NUR ---
patient arrived to the unit, patient settled, skin intact, left foot in a gauze bandage, patient requested not to remove, stated his great toe nail was removed. dressing is intact.
--- NOTE | 2023-01-30 16:00 | NUR ---
PATIENT IN DIALYSIS, WILL BE RECIEVING UNIT OF BLOOD WHILE IN DIALYSIS. PATIENT IN STABLE CONDITION.
--- NOTE | 2023-01-30 16:15 | NUR ---
PT BROUGHT TO DIALYSIS TREATMENT ROOM FOR PRESCRIBED HEMODIALYSIS FROM ROOM 277 VIA RECLINER CHAIR. HAND-OFF REPORT RECEIVED FROM PRIMARY NURSE DOTTY ALBARADO.
--- NOTE | 2023-01-30 16:30 | NUR ---
HEMODIALYSIS TREATMENT INITIATED AT 1626. SEE HEMODIALYSIS TREATMENT PROCESS INTERVENTION AND TABLO TREATMENT FLOWSHEET FOR TREATMENT SPECIFIC DETAILS.
--- NOTE | 2023-01-30 18:37 | NUR ---
PT RECEIVED 1 UNIT OF PRBC DURING TREATMENT. PT TOLERATED TRANSFUSION. STOPPED FLUIDS REMOVAL DUE TO LOW BP. AFTER COMPLETION OF BLOOD AND NOT REMOVING FLUIDS BP IS.
--- NOTE | 2023-01-30 19:12 | NUR ---
RESUME FLUIDS REMOVAL AT 1907. BP 144/54
--- NOTE | 2023-01-30 19:45 | NUR ---
RECEIVED REPORT FROM [facility] N[facility]. PT IN DIALYSIS AT THIS TIME.
--- NOTE | 2023-01-30 20:10 | NUR ---
POST HEMODIALYSIS PT RETURNED TO ROOM 277 VIA RECLINER. HAND-OFF REPORT ENDORSED TO PRIMARY NURSE MAXINE ALBARADO. CARE OF PT SURRENDERED AT THIS TIME.
--- NOTE | 2023-01-30 20:20 | NUR ---
PT BACK INTO ROOM FROM DIALYSIS. PT IS A/OX3, DENIES ANY PAIN AT THIS TIME. PT BLOOD PRESSURE IS ELEVATED, HEART RATE IS BRADYCARDIC AT THIS TIME. HOLDING METOPROLOL DUE HEART RATE. EDUCATED PT ON PLAN OF CARE AND DISCHARGE PLAN FOR AM. PT INDICATES UNDERSTANDING. CALL LIGHT WITHIN REACH AND SAFETY PRECAUTIONS IN PLACE.
--- NOTE | 2023-01-31 | NUR ---
PT LAYING IN BED SEMI FOWLERS, SLEEPING. CALL LIGHT WITHIN REACH AND SAFETY PRECAUTIONS IN PLACE.
--- NOTE | 2023-01-31 04:00 | NUR ---
PT INFORMED ON DISCHARGE FOR EARLY THIS MORNING. PT WAS WASHED AND CLEANED UP IN BED. RECEIVED TYLENOL FOR MILD PAIN IN LEG. PT NOW SITTING UP HIGH FOWLERS IN BED, CALL LIGHT WITHIN REACH AND SAFETY PRECAUTIONS IN PLACE.
[2023-01-31 04:24] VITALS: BP 162/59
[2023-01-31 06:48] VITALS: BP 163/58
== END 2023-01-31 08:02 ==
LOC: ED 11:55 → ED-I 12:16 → ED 12:16 → ED-I 12:50 → ED 13:05 → MS2 13:06
PROVIDERS: Family Medicine; ADMIT Internal Medicine; ATTEND Internal Medicine
PROC: 30233N1 Transfusion of Nonautologous Red Blood Cells into Peripheral Vein, Percutaneous Approach (ICD-10-PCS; principal; 2023-01-30)
PROC: 5A1D70Z Performance of Urinary Filtration, Intermittent, Less than 6 Hours Per Day (ICD-10-PCS; 2023-01-30)
DX: D64.9 Anemia, unspecified (principal); I12.0 Hypertensive chronic kidney disease with stage 5 chronic kidney disease or end stage renal disease; E11.22 Type 2 diabetes mellitus with diabetic chronic kidney disease; N18.6 End stage renal disease; D63.1 Anemia in chronic kidney disease; Z99.2 Dependence on renal dialysis; E78.5 Hyperlipidemia, unspecified; Z86.73 Personal history of transient ischemic attack (TIA), and cerebral infarction without residual deficits; Z85.038 Personal history of other malignant neoplasm of large intestine; Z87.19 Personal history of other diseases of the digestive system
CPT/HCPCS: J1644; P9016; Q5106 EC; S0164

== ENCOUNTER 2023-02-01 16:36 | Emergency (ER) | payer MEDICARE, OTHER ==
[~2023-02-01] VITALS: Ht 193 cm; Wt 86.1 kg
[2023-02-01 16:50] VITALS: BP 145/57
[2023-02-01 17:00] VITALS: BP 139/63
[2023-02-01 17:32] VITALS: BP 139/63
== END 2023-02-01 17:34 | disposition home or self-care (01) ==
LOC: ED 16:36
DX: R55 Syncope and collapse (principal); I12.0 Hypertensive chronic kidney disease with stage 5 chronic kidney disease or end stage renal disease; E11.22 Type 2 diabetes mellitus with diabetic chronic kidney disease; N18.6 End stage renal disease; F17.200 Nicotine dependence, unspecified, uncomplicated; Z99.2 Dependence on renal dialysis; Z86.73 Personal history of transient ischemic attack (TIA), and cerebral infarction without residual deficits; Z85.038 Personal history of other malignant neoplasm of large intestine